=== PATIENT | male | born 1940 | race Caucasian/White ===

== ENCOUNTER 2020-06-15 11:39 | Inpatient (IN) | payer MEDICARE ==
[2020-06-15] MEDS ORDERED: SODIUM CHLORIDE 0.9% 1,000 ML IV STA (11:47)
[2020-06-15] MEDS ORDERED: NALOXONE 0.4 MG/ML 1 ML VIAL IVP STA (11:47)
--- NOTE | 2020-06-15 12:00 | ED ---
Altered Mental Status HPI - General Stated Complaint: Altered Mental Status Time Seen by Provider: 06/15/20 11:39 Source: patient, RN notes reviewed - History of Present Illness Initial Comments: This is a 79-year-old male presents from a long-term with complaints of decreased level of consciousness going on for the past several days and getting worse. Is history depression and hypertension renal insufficiency as well as a recent diagnoses of Covid 19. No reports of fevers chills sweats nausea vomiting. Patient himself is a poor historian. Normally apparently is awake and alert and cognizant. Per paramedics patient's initial blood pressure was 220/120 he did receive IV fluids most recent one was 120/70. MD Complaint: altered mental status, decreased responsiveness - Related Data Home Medications Medication Instructions Recorded Confirmed Allopurinol [Zyloprim] 100 mg PO DAILY 06/15/20 06/15/20 Aspirin EC [Ecotrin Low Dose] 162 mg PO DAILY 06/15/20 06/15/20 Atorvastatin Calcium [Lipitor] 10 mg PO HS 06/15/20 06/15/20 DULoxetine HCL [Cymbalta] 30 mg PO HS 06/15/20 06/15/20 Furosemide [Lasix] 40 mg PO DAILY@0600 06/15/20 06/15/20 Memantine [Namenda] 10 mg PO BID 06/15/20 06/15/20 Methadone [Dolophine] 5 - 10 mg PO Q8H PRN 06/15/20 06/15/20 Metoprolol Succinate (ER) [Toprol 25 mg PO DAILY 06/15/20 06/15/20 Xl] Nitroglycerin Sl Tabs [Nitrostat] 0.4 mg SL Q5M PRN 06/15/20 06/15/20 amLODIPine [Norvasc] 2.5 mg PO DAILY 06/15/20 06/15/20 Allergies Allergy/AdvReac Type Severity Reaction Status Date / Time GAIL Inhibitors Allergy Unknown Verified 06/15/20 12:09 mallampati Allergy Unknown Uncoded 06/15/20 12:09 Review of Systems ROS Statement: Those systems with pertinent positive or pertinent negative responses have been documented in the HPI. ROS Other: All systems not noted in ROS Statement are negative. Limitations: ROS unobtainable due to patients medical condition General Exam - General Exam Comments Initial Comments: This is a well-developed well-nourished obtunded patient who does respond to painful stimuli. General appearance: obtunded Head exam: Present: atraumatic, normocephalic, normal inspection Eye exam: Present: other (Pupils are sluggish he does appear to have a slight leftward gaze with the left eye. Right eye is straight forward) ENT exam: Present: mucous membranes dry Neck exam: Present: normal inspection, other (No stridor JVD or bruits) Respiratory exam: Present: normal lung sounds bilaterally. Absent: respiratory distress, wheezes, rales, rhonchi, stridor Cardiovascular Exam: Present: normal rhythm, tachycardia, normal heart sounds. Absent: systolic murmur, diastolic murmur, rubs, gallop, clicks GI/Abdominal exam: Present: soft, normal bowel sounds. Absent: distended, tenderness, guarding, rebound, rigid Extremities exam: Present: normal inspection, full ROM, normal capillary refill. Absent: tenderness, pedal edema, joint swelling, calf tenderness Back exam: Present: normal inspection Neurological exam: Present: alert, altered, CN II-XII intact Psychiatric exam: Present: other (Unable to assess) Skin exam: Present: warm, dry, intact, normal color. Absent: rash Course Vital Signs 06/15/20 06/15/20 11:42 12:35 Temperature 99.6 F Pulse Rate 106 H Respiratory 20 15 Rate Blood Pressure 167/98 O2 Sat by Pulse 94 L Oximetry Medical Decision Making - Medical Decision Making I did discuss the case with Dr. Funes patient be admitted for treatment of right lower lobe pneumonia and dehydration. Of note the patient Covid test was positive on . In addition to NSTEMI - Lab Data Result diagrams: 06/15/20 12:24 06/15/20 12:24 Lab Results 06/15/20 06/15/20 06/15/20 Range/Units 12:24 12:24 12:24 WBC 5.7 (3.8-10.6) k/uL RBC 3.56 L (4.30-5.90) m/uL Hgb 11.0 L (13.0-17.5) gm/dL Hct 31.6 L (39.0-53.0) % MCV 88.5 (80.0-100.0) fL MCH 30.9 (25.0-35.0) pg MCHC 35.0 (31.0-37.0) g/dL RDW 13.6 (11.5-15.5) % Plt Count 222 (150-450) k/uL MPV 8.4 Neutrophils % 66 % Lymphocytes % 4 % Monocytes % 23 % Eosinophils % 0 % Basophils % 2 % Neutrophils # 3.8 (1.3-7.7) k/uL Lymphocytes # 0.3 L (1.0-4.8) k/uL Monocytes # 1.3 H (0-1.0) k/uL Eosinophils # 0.0 (0-0.7) k/uL Basophils # 0.1 (0-0.2) k/uL PT 10.6 (9.0-12.0) sec INR 1.0 (<1.2) APTT 24.6 (22.0-30.0) sec Sodium 139 (137-145) mmol/L Potassium 3.2 L (3.5-5.1) mmol/L Chloride 106 (98-107) mmol/L Carbon Dioxide 21 L (22-30) mmol/L Anion Gap 12 mmol/L BUN 41 H (9-20) mg/dL Creatinine 1.73 H (0.66-1.25) mg/dL Est GFR (CKD-EPI)AfAm 42 (>60 ml/min/1.73 sqM) Est GFR (CKD-EPI)NonAf 36 (>60 ml/min/1.73 sqM) Glucose 150 H (74-99) mg/dL Calcium 8.9 (8.4-10.2) mg/dL Total Bilirubin 1.2 (0.2-1.3) mg/dL AST 40 (17-59) U/L ALT 20 (4-49) U/L Alkaline Phosphatase 110 (38-126) U/L Ammonia (<30) umol/L Creatine Kinase 93 (55-170) U/L Troponin I (0.000-0.034) ng/mL Total Protein 6.5 (6.3-8.2) g/dL Albumin 3.4 L (3.5-5.0) g/dL Urine Color Urine Appearance (Clear) Urine pH (5.0-8.0) Ur Specific Reeders (1.001-1.035) Urine Protein (Negative) Urine Glucose (UA) (Negative) Urine Ketones (Negative) Urine Blood (Negative) Urine Nitrite (Negative) Urine Bilirubin (Negative) Urine Urobilinogen (<2.0) mg/dL Ur Leukocyte Esterase (Negative) Urine RBC (0-5) /hpf Urine Opiates Screen (NotDetected) Ur Oxycodone Screen (NotDetected) Urine Methadone Screen (NotDetected) Ur Propoxyphene Screen (NotDetected) Ur Barbiturates Screen (NotDetected) U Tricyclic Antidepress (NotDetected) Ur Phencyclidine Scrn (NotDetected) Ur Amphetamines Screen (NotDetected) U Methamphetamines Scrn (NotDetected) U Benzodiazepines Scrn (NotDetected) Urine Cocaine Screen (NotDetected) U Marijuana (THC) Screen (NotDetected) 06/15/20 06/15/20 06/15/20 Range/Units 12:24 12:24 12:40 WBC (3.8-10.6) k/uL RBC (4.30-5.90) m/uL Hgb (13.0-17.5) gm/dL Hct (39.0-53.0) % MCV (80.0-100.0) fL MCH (25.0-35.0) pg MCHC (31.0-37.0) g/dL RDW (11.5-15.5) % Plt Count (150-450) k/uL MPV Neutrophils % % Lymphocytes % % Monocytes % % Eosinophils % % Basophils % % Neutrophils # (1.3-7.7) k/uL Lymphocytes # (1.0-4.8) k/uL Monocytes # (0-1.0) k/uL Eosinophils # (0-0.7) k/uL Basophils # (0-0.2) k/uL PT (9.0-12.0) sec INR (<1.2) APTT (22.0-30.0) sec Sodium (137-145) mmol/L Potassium (3.5-5.1) mmol/L Chloride (98-107) mmol/L Carbon Dioxide (22-30) mmol/L Anion Gap mmol/L BUN (9-20) mg/dL Creatinine (0.66-1.25) mg/dL Est GFR (CKD-EPI)AfAm (>60 ml/min/1.73 sqM) Est GFR (CKD-EPI)NonAf (>60 ml/min/1.73 sqM) Glucose (74-99) mg/dL Calcium (8.4-10.2) mg/dL Total Bilirubin (0.2-1.3) mg/dL AST (17-59) U/L ALT (4-49) U/L Alkaline Phosphatase (38-126) U/L Ammonia <9 (<30) umol/L Creatine Kinase (55-170) U/L Troponin I 0.255 H* (0.000-0.034) ng/mL Total Protein (6.3-8.2) g/dL Albumin (3.5-5.0) g/dL Urine Color Yellow Urine Appearance Clear (Clear) Urine pH 6.0 (5.0-8.0) Ur Specific Reeders 1.011 (1.001-1.035) Urine Protein 1+ H (Negative) Urine Glucose (UA) Negative (Negative) Urine Ketones Negative (Negative) Urine Blood Negative (Negative) Urine Nitrite Negative (Negative) Urine Bilirubin Negative (Negative) Urine Urobilinogen <2.0 (<2.0) mg/dL Ur Leukocyte Esterase Negative (Negative) Urine RBC 1 (0-5) /hpf Urine Opiates Screen Not Detected (NotDetected) Ur Oxycodone Screen Not Detected (NotDetected) Urine Methadone Screen Detected H (NotDetected) Ur Propoxyphene Screen Not Detected (NotDetected) Ur Barbiturates Screen Not Detected (NotDetected) U Tricyclic Antidepress Not Detected (NotDetected) Ur Phencyclidine Scrn Not Detected (NotDetected) Ur Amphetamines Screen Not Detected (NotDetected) U Methamphetamines Scrn Not Detected (NotDetected) U Benzodiazepines Scrn Not Detected (NotDetected) Urine Cocaine Screen Not Detected (NotDetected) U Marijuana (THC) Screen Not Detected (NotDetected) - EKG Data -: EKG Interpreted by Me EKG Comments: Atrial fibrillation rate 129 QRS 80 QT since QTC 332/46 poor R-wave progression - Radiology Data Radiology results: report reviewed ((Reviewed evidence of right lower lobe pneum onia. ), image reviewed Critical Care Time Critical Care Time: Yes Total Critical Care Time: 37 Critical Care Time: Critical care time includes initial presentation with history physical labs x- rays multiple reevaluation the patient review of old charting was available discussed with the admitting physician admission orders and documentation of the above Disposition Clinical Impression: NSTEMI (non-ST elevated myocardial infarction), Chronic a-fib, Right lower lobe pneumonia, Dehydration, Delirium due to general medical condition, COVID-19 Disposition: ADMITTED IP TO THIS HOSP Condition: Fair Referrals: Stan Arias MD [Primary Care Provider] - 1-2 days
[2020-06-15 12:44] LABS: Basophils # (A) 0.1 k/uL (0-0.2); Basophils % (A) 2 %; Eosinophils % (A) 0 %; HCT 31.6 % (39.0-53.0); Lymphocytes # (A) 0.3 k/uL (1.0-4.8); Lymphocytes % (A) 4 %; MCH 30.9 pg (25.0-35.0); MCV 88.5 fL (80.0-100.0); Mean Platelet Volume 8.4; Monocytes # (A) 1.3 k/uL (0-1.0); Monocytes % (A) 23 %; Neutrophils # (A) 3.8 k/uL (1.3-7.7); Neutrophils % (A) 66 %; Platelet Count 222 k/uL (150-450); RBC 3.56 m/uL (4.30-5.90); RDW 13.6 % (11.5-15.5); WBC 5.7 k/uL (3.8-10.6)
[2020-06-15 12:45] LABS: Albumin 3.4 g/dL (3.5-5.0); Calcium 8.9 mg/dL (8.4-10.2); Potassium 3.2 mmol/L (3.5-5.1); Total Bilirubin 1.2 mg/dL (0.2-1.3); Total Protein 6.5 g/dL (6.3-8.2)
[2020-06-15 12:53] LABS: Partial Thromboplastin Time 24.6 sec (22.0-30.0); Prothrombin Time 10.6 sec (9.0-12.0)
--- NOTE | 2020-06-15 12:57 | XR ---
EXAMINATION TYPE: XR chest 2V DATE OF EXAM: 06/15/2020 COMPARISON: None INDICATION: Altered mental status TECHNIQUE: Frontal and lateral views of the chest are obtained. FINDINGS: The heart size is normal. The pulmonary vasculature is normal. A minimal infiltrate as above the right diaphragm. Lungs otherwise clear. IMPRESSION: 1. Mild atelectasis or early pneumonia in the right lung base may be present.
--- NOTE | 2020-06-15 13:04 | CT ---
EXAMINATION TYPE: CT brain wo con DATE OF EXAM: 06/15/2020 COMPARISON: INDICATION: Altered mental status DLP: 1227.4 mGycm, Automated exposure control for dose reduction was used. CONTRAST: None CT of the brain is performed utilizing 3 mm thick sections through the posterior fossa and 3 mm thick sections through the remaining calvarium. Study is performed within 24 hours of arrival to the hosp ital. No abnormal hyperdensity is present to suggest an acute intracranial hemorrhage. No mass lesion is evident. No acute infarcts are evident. Periventricular white matter hypodensity is present, likely on the bas is of chronic white matter ischemic-type changes. Ventricles and sulci are mildly prominent for the patient age. Paranasal sinuses and mastoid air cells within the [id number] are clear. IMPRESSIONS: 1. Age-related atrophy with mild periventricular white matter chronic appearing ischemic changes.
[2020-06-15] MEDS ORDERED: cefTRIAXone IN SWFI 1,000 MG/10 ML SYRINGE IVP STA (13:14)
[2020-06-15 13:49] LABS: Appearance,Urine Clear (Clear); Bilirubin,Urine Negative (Negative); Blood,Urine Negative (Negative); Color,Urine Yellow; Glucose,Urine (UA) Negative (Negative); Ketones,Urine Negative (Negative); Leukocyte Esterase,Urine Negative (Negative); Nitrite,Urine Negative (Negative); Protein,Urine 1+ (Negative); RBC,Urine 1 /hpf (0-5); Specific Gravity,Urine 1.011 (1.001-1.035); Urobilinogen,Urine <2.0 mg/dL (<2.0)
[2020-06-15 14:03] LABS: Amphetamine Screen,Urine Not Detected (NotDetected); Barbiturate Screen,Urine Not Detected (NotDetected); Benzodiazepines Screen,Urine Not Detected (NotDetected); Cocaine Screen,Urine Not Detected (NotDetected); Methadone Screen, Urine Detected (NotDetected); Opiate Screen,Urine Not Detected (NotDetected); Oxycodone Screen, Urine Not Detected (NotDetected); Phencyclidine Screen,Urine Not Detected (NotDetected); Tricyclic Antidepressant,Urine Not Detected (NotDetected); Urn Cannabinoid Scrn Not Detected (NotDetected)
[2020-06-15] MEDS ORDERED: AZITHROMYCIN 500 MG in SODIUM CHLORIDE 0.9% 250 ML IVPB STA (14:24)
[2020-06-15] MEDS ORDERED: PNEUMONIA PROTOCOL UTILIZED 1 EACH MISC PO PRN ×2 (14:24→15:31)
[2020-06-15] MEDS ORDERED: NITROGLYCERIN SL TABS 0.4 MG TAB SUBLINGUAL PRN (14:27)
[2020-06-15] MEDS ORDERED: METHADONE 5 MG TAB PO PRN (14:27)
[2020-06-15] MEDS ORDERED: hydrALAZINE HCL 20 MG/ML 1 ML VIAL IVP STA (14:59)
[2020-06-15] MEDS ORDERED: DILTIAZEM DRIP BOLUS FROM BAG 1 MG SOLN IV ONE (15:20)
[2020-06-15] MEDS: DILTIAZEM 125 MG in SODIUM CHLORIDE 0.9% 100 ML IV SCH (17:04)
[2020-06-15] MEDS ORDERED: POTASSIUM CHLORIDE ER 20 MEQ TAB.ER PO STA (21:47)
[2020-06-15] MEDS ORDERED: cloNIDine 0.1 MG/24HR PATCH TRANSDERM SCH (22:00)
[2020-06-15] MEDS ORDERED: Potassium Replacement Protocol 1 EACH MISC MISCELLANE PRN (22:12)
[2020-06-15] MEDS: MEMANTINE 10 MG TAB PO SCH (22:21)
[2020-06-15] MEDS: DULoxetine HCL 30 MG CAPSULE.DR PO SCH (22:21)
[2020-06-15] MEDS: ATORVASTATIN 10 MG TAB PO SCH (22:21)
[2020-06-15] MEDS: LACTATED RINGERS 1,000 ML IV SCH (22:41)
[2020-06-15] MEDS: POTASSIUM CHLORIDE 10 MEQ in WATER FOR INJECTION 1 100ML.BAG IVPB SCH ×2 (22:42→23:47)
[2020-06-16] MEDS ORDERED: FUROSEMIDE 40 MG TAB PO SCH (06:00)
[2020-06-16 07:37] LABS: Potassium 3.3 mmol/L (3.5-5.1)
--- NOTE | 2020-06-16 08:03 | XR ---
EXAMINATION TYPE: XR chest 1V DATE OF EXAM: 06/16/2020 HISTORY: Shortness of breath. COMPARISON: 06/15/2020 TECHNIQUE: Single view of the chest is submitted. FINDINGS: Demonstrated are scattered senescent parenchymal change. Patchy basilar infiltrates persist without significant change. Correlate for pneumonia. The heart is stable. Hilar and mediastinal structures are within normal limits. Degenerative changes are seen of the dorsal spine. IMPRESSION: 1. Patchy basilar infiltrates persist without significant change. Correlate for pneumonia.
[2020-06-16] MEDS ORDERED: ASPIRIN 81 MG PO SCH (09:00)
[2020-06-16] MEDS ORDERED: Potassium Replacement Protocol 1 EACH MISC MISCELLANE PRN (10:16)
[2020-06-16] MEDS ORDERED: HEPARIN SODIUM,PORCINE 5,000 UNIT/ML 1 ML VIAL IV ONE (10:26)
[2020-06-16] MEDS ORDERED: HEPARIN SODIUM,PORCINE 5,000 UNIT/ML 1 ML VIAL IV PRN (10:26)
[2020-06-16] MEDS: allopurinoL 100 MG TAB PO SCH (10:27)
[2020-06-16] MEDS: AZITHROMYCIN 500 MG TAB PO SCH (10:27)
[2020-06-16] MEDS: amLODIPine 2.5 MG TAB PO SCH (10:27)
[2020-06-16] MEDS: LACTATED RINGERS 1,000 ML IV SCH ×2 (10:27→18:48)
[2020-06-16] MEDS: MEMANTINE 10 MG TAB PO SCH ×2 (10:28→20:28)
[2020-06-16] MEDS: METOPROLOL SUCCINATE (ER) 25 MG TAB.ER.24H PO SCH (10:28)
[2020-06-16] MEDS: POTASSIUM CHLORIDE 10 MEQ in WATER FOR INJECTION 1 100ML.BAG IVPB SCH ×4 (10:38→14:15)
[2020-06-16 11:19] LABS: Partial Thromboplastin Time 25.2 sec (22.0-30.0); Prothrombin Time 10.4 sec (9.0-12.0)
[2020-06-16] MEDS: HEPARIN SOD,PORK IN 0.45% NACL 25,000 UNIT in 0.45% NACL 1 250ML.BAG IV SCH (11:22)
[2020-06-16 11:30] LABS: Basophils # (A) 0.2 k/uL (0-0.2); Basophils % (A) 3 %; Eosinophils % (A) 0 %; HCT 41.4 % (39.0-53.0); HGB 13.9 gm/dL (13.0-17.5); Lymphocytes # (A) 0.1 k/uL (1.0-4.8); Lymphocytes % (A) 1 %; MCH 30.1 pg (25.0-35.0); MCHC 33.6 g/dL (31.0-37.0); MCV 89.4 fL (80.0-100.0); Mean Platelet Volume 8.6; Monocytes # (A) 0.7 k/uL (0-1.0); Monocytes % (A) 13 %; Neutrophils # (A) 4.6 k/uL (1.3-7.7); Neutrophils % (A) 81 %; Platelet Count 204 k/uL (150-450); RBC 4.63 m/uL (4.30-5.90); RDW 13.8 % (11.5-15.5); WBC 5.7 k/uL (3.8-10.6)
[2020-06-16] MEDS: ACETAMINOPHEN SUPPOSITORY 650 MG SUPP RECTAL PRN ×2 (11:54→17:44)
[2020-06-16] MEDS: DILTIAZEM 125 MG in SODIUM CHLORIDE 0.9% 100 ML IV SCH (11:56)
--- NOTE | 2020-06-16 14:19 | P.CRDCN ---
History of Present Illness History of present illness: HISTORY OF PRESENTING ILLNESS This is a pleasant 79-year-old male past medical history significant for hypertension, dyslipidemia, frequent PVC's and recent COVID infection. He used to follow in the office with Dr. Sharpe. He has not followed since 2017. He is currently here being treated for COVID. We discussed the case with the nurse to prevent spread of infection. He presented to the hospital with altered mental status and decreased level of consciousness that is getting worse over the previous several days. He had been diagnosed with Covid recently. On arrival he was noted to be in atrial fibrillation with rapid ventricular rate. He was initiated on Cardizem infusion. Currently heart rates are in the 140s with blood pressure 25/86 and a temperature of 102.5F. Telemetry data reviewed, WBC 5.7, hemoglobin 13.9, platelets 204, d-dimer 2.23, sodium 144, potassium 3.3, creatinine 1.67, troponin 0.255. Most recent echocardiogram obtained in the office in 2016 reveals preserved LV systolic function with ejection fraction 65% with grade 1 diastolic dysfunction. REVIEW OF SYSTEMS At the time of my exam: Pt is not responding or answering questions appropriately. PHYSICAL EXAMINATION CONSTITUTIONAL: No apparent distress. Full exam was deferred to do COVID 19 ASSESSMENT Covid 19 Paroxysmal atrial fibrillation, new onset with RVR Troponin leak secondary to infection Febrile illness Hypertension Dyslipidemia PLAN Continue cardizem infusion and titrate up for heart rate. Given one dose of lopressor IVP 5 mg now. Recommend conservative management given his current diagnosis of COVID 19 Thank you kindly for this consultation. Nurse Practitioner note has been reviewed, I agree with a documented findings and plan of care. Patient was seen and examined. Past Medical History Past Medical History: Atrial Fibrillation, Heart Failure, Hyperlipidemia, Hypertension, Myocardial Infarction ([place]) Last Myocardial Infarction Date:: unknown History of Any Multi-Drug Resistant Organisms: None Reported Past Surgical History: Unable to Obtain Additional Past Surgical History / Comment(s): Back surgery (uses walker at home) Past Anesthesia/Blood Transfusion Reactions: No Reported Reaction Past Psychological History: No Psychological Hx Reported Smoking Status: Former smoker, Unknown if ever smoked Past Alcohol Use History: Unable to Obtain Past Drug Use History: Unable to Obtain Medications and Allergies Home Medications Medication Instructions Recorded Confirmed Type Allopurinol [Zyloprim] 100 mg PO DAILY 06/15/20 06/15/20 History Aspirin EC [Ecotrin Low Dose] 162 mg PO DAILY 06/15/20 06/15/20 History Atorvastatin Calcium [Lipitor] 10 mg PO HS 06/15/20 06/15/20 History DULoxetine HCL [Cymbalta] 30 mg PO HS 06/15/20 06/15/20 History Furosemide [Lasix] 40 mg PO DAILY@0600 06/15/20 06/15/20 History Memantine [Namenda] 10 mg PO BID 06/15/20 06/15/20 History Methadone [Dolophine] 5 - 10 mg PO Q8H PRN 06/15/20 06/15/20 History Metoprolol Succinate (ER) [Toprol 25 mg PO DAILY 06/15/20 06/15/20 History Xl] Nitroglycerin Sl Tabs [Nitrostat] 0.4 mg SL Q5M PRN 06/15/20 06/15/20 History amLODIPine [Norvasc] 2.5 mg PO DAILY 06/15/20 06/15/20 History Allergies Allergy/AdvReac Type Severity Reaction Status Date / Time GAIL Inhibitors Allergy Unknown Verified 06/15/20 12:09 mallampati Allergy Unknown Uncoded 06/15/20 12:09 Physical Exam Vitals: Vital Signs Temp Pulse Pulse Resp BP BP BP 06/16/20 12:08 185/86 06/16/20 11:29 102.5 F H 130 H 32 H 180/99 06/16/20 08:00 99.7 F H 130 H 16 06/16/20 04:00 97.4 F L 126 H 20 141/92 06/16/20 00:00 99.0 F 104 H 18 136/76 06/15/20 22:00 97.9 F 115 H 20 198/87 206/88 06/15/20 20:33 99.0 F 116 H 20 158/83 06/15/20 17:00 115 H 20 166/90 06/15/20 16:00 128 H 20 155/104 06/15/20 15:15 99.2 F 134 H 22 162/89 Pulse Ox 06/16/20 12:08 06/16/20 11:29 95 06/16/20 08:00 96 06/16/20 04:00 97 06/16/20 00:00 93 L 06/15/20 22:00 96 06/15/20 20:33 95 06/15/20 17:00 95 06/15/20 16:00 93 L 06/15/20 15:15 97 Intake and Output 06/15/20 06/16/20 06/16/20 22:59 06:59 14:59 Intake Total 94.333 Balance 94.333 Intake: Intake, IV Titration 94.333 Amount Diltiazem 125 mg In 94.333 Sodium Chloride 0.9% 100 ml @ 5 MG/HR 5 mls/hr IV .Q24H [facility] Rx#:[id number] Oral 0 Other: Voiding Method Incontinent # Voids 0 1 Weight 98 kg 98 kg Results 06/16/20 10:42 06/16/20 06:50 Cardiac Enzymes 06/15/20 Range/Units 12:24 Troponin I 0.255 H* (0.000-0.034) ng/mL Coagulation 06/16/20 Range/Units 10:42 PT 10.4 (9.0-12.0) sec APTT 25.2 (22.0-30.0) sec CBC 06/16/20 Range/Units 10:42 WBC 5.7 (3.8-10.6) k/uL RBC 4.63 (4.30-5.90) m/uL Hgb 13.9 (13.0-17.5) gm/dL Hct 41.4 (39.0-53.0) % Plt Count 204 (150-450) k/uL Comprehensive Metabolic Panel 06/16/20 Range/Units 06:50 Sodium 144 (137-145) mmol/L Potassium 3.3 L (3.5-5.1) mmol/L Chloride 111 H (98-107) mmol/L Carbon Dioxide 22 (22-30) mmol/L BUN 37 H (9-20) mg/dL Creatinine 1.67 H (0.66-1.25) mg/dL Glucose 127 H (74-99) mg/dL Calcium 9.0 (8.4-10.2) mg/dL Current Medications Generic Name Dose Route Start Last Admin Trade Name Freq PRN Reason Stop Dose Admin Acetaminophen 650 mg 06/16/20 11:35 06/16/20 11:54 Acetaminophen Suppository 650 Mg Supp RECTAL 650 mg Q6HR PRN Administration Fever and/ or Pain Allopurinol 100 mg 06/16/20 09:00 06/16/20 10:27 Allopurinol 100 Mg Tab PO Not Given DAILY [facility] Amlodipine Besylate 2.5 mg 06/16/20 09:00 06/16/20 10:27 Amlodipine 2.5 Mg Tab PO Not Given DAILY [facility] Aspirin 162 mg 06/16/20 09:00 06/16/20 10:27 Aspirin 81 Mg PO Not Given DAILY [facility] Atorvastatin Calcium 10 mg 06/15/20 21:00 06/15/20 22:21 Atorvastatin 10 Mg Tab PO Not Given HS [facility] Azithromycin 500 mg 06/16/20 09:00 06/16/20 10:27 Azithromycin 500 Mg Tab PO 06/20/20 09:01 Not Given DAILY [facility] Clonidine HCl 1 patch 06/15/20 22:00 06/15/20 22:43 Clonidine 0.1 Mg/24hr Patch TRANSDERM 1 patch Q7D [facility] Administration Duloxetine HCl 30 mg 06/15/20 21:00 06/15/20 22:21 Duloxetine Hcl 30 Mg Capsule.Dr PO Not Given HS [facility] Furosemide 40 mg 06/16/20 06:00 06/16/20 07:47 Furosemide 40 Mg Tab PO Not Given DAILY@0600 [facility] Heparin Sodium (Porcine) 0 unit 06/16/20 10:26 Heparin Sodium,Porcine 5,000 Unit/Ml 1 Ml Vial IV PER PROTOCOL PRN Low PTT Protocol Ceftriaxone Sodium 2 gm/ 50 mls @ 100 mls/hr 06/16/20 09:00 06/16/20 08:25 Sodium Chloride IVPB 06/18/20 09:01 100 mls/hr Q24HR [facility] Administration Diltiazem HCl 125 mg/ Sodium 125 mls @ 10 mls/hr 06/15/20 15:30 06/16/20 11:56 Chloride IV 10 mg/hr .[id number] [facility] 10 mls/hr Administration 10 MG/HR Lactated Ringer's 1,000 mls @ 100 mls/hr 06/15/20 22:30 06/16/20 10:27 Lactated Ringers IV Not Given .Q10H [facility] Potassium Chloride 10 meq/ IV 100 mls @ 100 mls/hr 06/16/20 11:00 06/16/20 12:55 Solution IVPB 06/16/20 14:59 100 mls/hr Q1HR [facility] Administration Protocol Heparin Sodium/Sodium Chloride 250 mls @ 9.996 mls/hr 06/16/20 10:30 06/16/20 11:22 25,000 unit/ Sodium Chloride IV 10.2 units/kg/hr .Q24H [facility] 9.996 mls/hr Administration Protocol 10.2 UNITS/KG/HR Memantine 10 mg 06/15/20 21:00 06/16/20 10:28 Memantine 10 Mg Tab PO Not Given BID [facility] Methadone HCl 5 mg 06/15/20 14:27 Methadone 5 Mg Tab PO Q8H PRN Pain Metoprolol Succinate 25 mg 06/16/20 09:00 06/16/20 10:28 Metoprolol Succinate (Er) 25 Mg Tab.Er.24h PO Not Given DAILY [facility] Miscellaneous Information 1 each 06/15/20 15:31 Pneumonia Protocol Utilized 1 Each Misc PO ONCE PRN Per Protocol Miscellaneous Information 1 each 06/16/20 10:16 Potassium Replacement Protocol 1 Each Misc MISCELLANE DAILY PRN Per Protocol Protocol Nitroglycerin 0.4 mg 06/15/20 14:27 Nitroglycerin Sl Tabs 0.4 Mg Tab SUBLINGUAL Q5M PRN Chest Pain Intake and Output 06/15/20 06/16/20 06/16/20 22:59 06:59 14:59 Intake Total 94.333 Balance 94.333 Intake: Intake, IV Titration 94.333 Amount Diltiazem 125 mg In 94.333 Sodium Chloride 0.9% 100 ml @ 5 MG/HR 5 mls/hr IV .Q24H [facility] Rx#:[id number] Oral 0 Other: Voiding Method Incontinent # Voids 0 1 Weight 98 kg 98 kg 06/16/20 10:42 06/16/20 06:50
[2020-06-16] MEDS: METOPROLOL TARTRATE 5 MG/5 ML VIAL IVP PRN (14:35)
--- NOTE | 2020-06-16 16:59 | P.CNNES ---
History of Present Illness Consult date: 06/16/20 Requesting physician: Alfonso Funes Reason for Consult: Altered mental status History of Present Illness: Patient is a 79-year-old male came to the hospital yesterday at 11:39 AM by ambulance from a residential with complaints of decreased level of consciousness going for past several days, getting worse. Patient has history of depression and hypertension, renal insufficiency as well as recent diagnosis of Covid 19. No reports of fevers chills, sweats nausea vomiting. Per EMS flow sheet, staff has mentioned that patient has declined from being oriented, walking around, conversing to an unresponsive state. Patient has stopped eating, drinking over the last 2 days prior to arrival. On the morning of admission, the vitals checked at the residential was 220/120 and he was given metoprolol and amlodipine. Patient is Covid positive. When EMS arrived, patient was unresponsive, open mouth breathing, tongue dry and crusty. No signs of trauma. Patient noted to have possible droop in the corner of the mouth. EKG shows atrial fibrillation with rapid ventricle rate. Patient's blood pressure was 136/65 per EMS, pulse 115, saturation 94%, respiration 28 Vital signs on arrival blood pressure 167/98, pulse rate 106, temperature 99.6. Patient's blood pressure went up to 209/94. T-max is 99.[address] head showed age-related atrophy with mild periventricular white matter chronic appearing ischemic changes. Chest x-ray showed mild atelectasis or early pneumonia in the right lung base. EKG shows atrial fibrillation with rapid ventricular rate. Repeat chest x-ray showed patchy basilar infiltrates persist without significant change. Correlate for pneumonia. Patient's blood test shows normal WBC hemoglobin 11.0, platelets are 222. PT/PTT is normal. Sodium is normal potassium 3.2, BUN 41, creatinine 1.73, which is improved to 37 and 1.67 respectively. Hepatic panel normal, troponin is mildly elevated 0.255. UA negative, urine drug screen positive for methadone. Patient takes Namenda 10 mg twice a day, Lasix 40 mg, Cymbalta 30 mg at bedtime, aspirin 162 mg, methadone Lipitor 10 mg amlodipine. Patient has been started on heparin drip for atrial fibrillation. Review of Systems ROS unobtainable: due to mental status Past Medical History Past Medical History: Atrial Fibrillation, Heart Failure, Hyperlipidemia, Hypertension, Myocardial Infarction ([place]) Last Myocardial Infarction Date:: unknown History of Any Multi-Drug Resistant Organisms: None Reported Past Surgical History: Unable to Obtain Additional Past Surgical History / Comment(s): Back surgery (uses walker at home) Past Anesthesia/Blood Transfusion Reactions: No Reported Reaction Past Psychological History: No Psychological Hx Reported Smoking Status: Former smoker, Unknown if ever smoked Past Alcohol Use History: Unable to Obtain Past Drug Use History: Unable to Obtain Medications and Allergies Home Medications Medication Instructions Recorded Confirmed Type Allopurinol [Zyloprim] 100 mg PO DAILY 06/15/20 06/15/20 History Aspirin EC [Ecotrin Low Dose] 162 mg PO DAILY 06/15/20 06/15/20 History Atorvastatin Calcium [Lipitor] 10 mg PO HS 06/15/20 06/15/20 History DULoxetine HCL [Cymbalta] 30 mg PO HS 06/15/20 06/15/20 History Furosemide [Lasix] 40 mg PO DAILY@0600 06/15/20 06/15/20 History Memantine [Namenda] 10 mg PO BID 06/15/20 06/15/20 History Methadone [Dolophine] 5 - 10 mg PO Q8H PRN 06/15/20 06/15/20 History Metoprolol Succinate (ER) [Toprol 25 mg PO DAILY 06/15/20 06/15/20 History Xl] Nitroglycerin Sl Tabs [Nitrostat] 0.4 mg SL Q5M PRN 06/15/20 06/15/20 History amLODIPine [Norvasc] 2.5 mg PO DAILY 06/15/20 06/15/20 History Allergies Allergy/AdvReac Type Severity Reaction Status Date / Time GAIL Inhibitors Allergy Unknown Verified 06/15/20 12:09 mallampati Allergy Unknown Uncoded 06/15/20 12:09 Physical Examination - Vital Signs Vital Signs: Vital Signs Temp Pulse Pulse Resp BP BP BP 06/16/20 08:00 99.7 F H 130 H 16 06/16/20 04:00 97.4 F L 126 H 20 141/92 06/16/20 00:00 99.0 F 104 H 18 136/76 06/15/20 22:00 97.9 F 115 H 20 198/87 206/88 06/15/20 20:33 99.0 F 116 H 20 158/83 06/15/20 17:00 115 H 20 166/90 06/15/20 16:00 128 H 20 155/104 06/15/20 15:15 99.2 F 134 H 22 162/89 06/15/20 12:35 15 06/15/20 11:42 99.6 F 106 H 20 167/98 Pulse Ox 06/16/20 08:00 96 06/16/20 04:00 97 06/16/20 00:00 93 L 06/15/20 22:00 96 06/15/20 20:33 95 06/15/20 17:00 95 06/15/20 16:00 93 L 06/15/20 15:15 97 06/15/20 12:35 06/15/20 11:42 94 L Intake and Output 06/15/20 06/16/20 06/16/20 22:59 06:59 14:59 Other: Voiding Method Incontinent # Voids 0 1 Weight 98 kg 98 kg On examination patient is an elderly male, who is obtunded, encephalopathic, snoring, opening eyes minimally to calling his name loudly. Speech and language functions cannot be checked. Patient is not following commands. His pupils are round and reacting to light, visual marion could not be tested. Gaze is in the midline. Oculocephalics are absent. Face appears symmetric. Patient's muscle strength cannot be checked, however when the arms are lifted up, he slowly brings them down equally, with no asymmetry. Patient slightly moves his hands and legs equally to noxious stimuli. He did moan slightly. Reflexes are diminished and plantars are flat. Patient's feet are somewhat plantarflexed. Uncertain if he has any focal weakness. Tone and bulk of muscles normal. Gait cannot be checked. Cerebellar functions could not be checked. Tone is equal bilaterally. No obvious seizure activity noted. No obvious bruit, S1-S2 audible. Abdomen soft. Results - Laboratory Findings CBC and BMP: 06/16/20 10:42 06/16/20 06:50 Abnormal Lab Findings: Abnormal Labs 06/15/20 06/15/20 06/15/20 12:24 12:24 12:24 RBC 3.56 L Hgb 11.0 L Hct 31.6 L Lymphocytes # 0.3 L Monocytes # 1.3 H Potassium 3.2 L Chloride Carbon Dioxide 21 L BUN 41 H Creatinine 1.73 H Glucose 150 H Troponin I 0.255 H* Albumin 3.4 L Urine Protein Urine Methadone Screen 06/15/20 06/16/20 12:40 06:50 RBC Hgb Hct Lymphocytes # Monocytes # Potassium 3.3 L Chloride 111 H Carbon Dioxide BUN 37 H Creatinine 1.67 H Glucose 127 H Troponin I Albumin Urine Protein 1+ H Urine Methadone Screen Detected H Assessment and Plan Assessment: * Altered mental status, likely due to toxic metabolic encephalopathy. Patient has acute Covid 19 pneumonia. * Atrial fibrillation with rapid ventricular rate. Limited examination is nonfocal. * Elevated cardiac enzymes, possible troponin leak per cardiology. * Hypertension * Dyslipidemia. Plan: * We will check EEG to evaluate for encephalopathy, rule out any seizure activity. * Carotid Doppler * Patient has been started on heparin for atrial fibrillation. Limited examination is nonfocal. * We will follow.
--- NOTE | 2020-06-16 20:14 | US ---
EXAMINATION TYPE: US carotid duplex BILAT DATE OF EXAM: 06/16/2020 COMPARISON: CT, MR CLINICAL HISTORY: AMS. Altered mental status. Patient unable to give history. EXAM MEASUREMENTS: RIGHT: Peak Systolic Velocity (PSV) cm/sec ----- Right CCA: 51.1 ----- Right ICA: 164.2 ----- Right ECA: 94.9 ICA/CCA ratio: 3.2 RIGHT: End Diastole cm/sec ----- Right CCA: 7.5 ----- Right ICA: 26.2 ----- Right ECA: 1.7 LEFT: Peak Systolic Velocity (PSV) cm/sec ----- Left CCA: 61.9 ----- Left ICA: 136.2 ----- Left ECA: 188.9 ICA/CCA ratio: 2.2 LEFT: End Diastole cm/sec ----- Left CCA: 9.1 ----- Left ICA: 18.3 ----- Left ECA: 0.0 VERTEBRALS (direction of flow): Right Vertebral: Antegrade Left Vertebral: Not visualized at this time. Rhythm: Arrhythmia Exam is slightly limited due to altered mental status, and patient did not turn neck into proper posi tion. Intimal thickening seen bilaterally. Plaque seen in bilateral bulbs. IMPRESSION: Limited evaluation. Elevated velocities in the right greater than left ICAs, consistent with 50-69% stenosis. Also mildly to moderately elevated left ECA velocity. Criteria for Assigning % of Stenosis / Diameter reduction (Estimation based on the indirect measurements of the internal carotid artery velocities (ICA PSV). 1. Normal (no stenosis)=ICA PSV < 125 cm/s: ratio < 2.0: ICA EDV<40 cm/s. 2. Less than 50% stenosis=ICA PSV < 125 cm/s: ratio < 2.0: ICA EDV<40 cm/s. 3. 50 to 69% stenosis=ICA PSV of 125 to 230 cm/s: ration 2.0 ? 4.0: ICA EDV 40-100 cm/s. 4. Greater than 70% stenosis to near occlusion= ICA PSV > 230 cm/s: ratio > 4.0: ICA EDV > 100 cm/s. 5. Near occlusion= ICA PSV velocities may be low or undetectable: variable ratio and ICA EDV. 6. Total occlusion=unable to detect flow.
[2020-06-16] MEDS: ATORVASTATIN 10 MG TAB PO SCH (20:28)
[2020-06-16] MEDS: DULoxetine HCL 30 MG CAPSULE.DR PO SCH (20:28)
--- NOTE | 2020-06-16 20:43 | P.HPIM ---
History of Present Illness H&P Date: 06/16/20 Chief Complaint: Decreased consciousness History of presenting complaint: This is a 79-year-old patientNaq who follows with at the [facility]. Chronic stable medical conditions include kidney stones GERD, mitral regurgitation, peripheral neuropathy, spinal stenosis, hard of hearing, vitamin D deficiency, coronary artery disease, hyperlipidemia, major depression, tricuspid regurgitation, atrial fibrillation, osteoarthritis. Delivery week ago patient had been apparently getting about was able to converse. Staff indicated of the EMS personnel that the patient had declined from being oriented walking around conversing when unresponsive state. On the last 2 days oral intake had practically ceased. Patient's blood pressure the morning was 200/120. He did receive metoprolol and amlodipine. Telemetry didn't show atrial fibrillation. Patient is lethargic. Opens his eyes. Not really able to give any history. Patient also positive for COVID 19 apparently on May 31or . Review of systems cannot be done as patient other lethargic Past medical history to include: Kidney stones, GERD, mitral regurgitation, peripheral neuropathy, spinal stenosis, hard of hearing, vitamin D deficiency, coronary artery disease, hyperlipidemia, major depression, tricuspid regurgitation, atrial fibrillation, osteoarthritis Past surgical history to include: Back surgery Social history: At the [facility]. Former smoker. Family history: Unable to obtain Physical examination: VITAL SIGNS: 99.2, 1:30, 22, 1 62 x 89, 97% GENERAL: BMI 29.3, laying in bed, lethargic but arousable. EYES: Pupils equal. Conjunctiva palel. HEENT: External appearance of nose and ears normal, oral cavity dry mucous membranes. NECK: JVD not raised; masses not palpable. HEART: First and second heart sounds are normal; no edema. LUNGS:[ Respiratory rate normal; decreased breath sounds. ABDOMEN: Soft, nontender, liver spleen not palpable, no masses palpable. PSYCH: [Lethargic. NEUROLOGICAL: [Cranial nerves grossly intact; no facial asymmetry, moving his limbs LYMPHATICS: No lymph nodes palpable in the axilla and neck INVESTIGATIONS, reviewed in the clinical context: WBC 5.7 hemoglobin 13.9 platelets 204 Potassium 3.2 bun 41 and creatinine 1.73 Troponin I 0.255 CRP 134 UA positive for protein 1+ Urine drug screen positive for methadone EKG tracing personally reviewed by me-atrial fibrillation with a rate of 129 Chest x-ray film personally reviewed by me-right basilar infiltrate Computed tomography scan of the brain: Aged related atrophy D-dimer 2.23, CRP 134 Assessment and plan: -This is a patient presents in the last 2 days has been progressively declining with decrease sensorium and poor oral intake. Differential includes encephalopathy from underlying pneumonia. Resulting in severe dehydration. Also stroke needs to be ruled out -Right lower lobe pneumonia. Suspect gram-negative organism. Patient is on IV ceftriaxone. -Persistent atrial fibrillation. Need to consider embolic stroke in the differential. Patient placed on IV heparin. Likely cause of the patient not being anticoagulated before was likely risk of falls -Chronic congestive heart failure EF not known -Essential hypertension, on Norvasc Toprol-XL -Hyperlipidemia, on Lipitor -Cognitive impairment patient on Namenda -Coronary artery disease with prior history of [place] -COVID 19 pneumonitis. Patient's pulse ox is stable. No obvious indication for steroids. -Acute kidney injury likely prerenal. Rule out chronic component. DC Lasix. IV fluids. Follow labs -DO NOT RESUSCITATE Consultation to neurology and cardiology Given the complexity and severity of patient's condition expect the patient to be in the hospital at least for 2 overnights Past Medical History Past Medical History: Atrial Fibrillation, Heart Failure, Hyperlipidemia, Hyper tension, Myocardial Infarction ([place]) Last Myocardial Infarction Date:: unknown History of Any Multi-Drug Resistant Organisms: None Reported Past Surgical History: Unable to Obtain Additional Past Surgical History / Comment(s): Back surgery (uses walker at home) Past Anesthesia/Blood Transfusion Reactions: No Reported Reaction Past Psychological History: No Psychological Hx Reported Smoking Status: Former smoker, Unknown if ever smoked Past Alcohol Use History: Unable to Obtain Past Drug Use History: Unable to Obtain Medications and Allergies Home Medications Medication Instructions Recorded Confirmed Type Allopurinol [Zyloprim] 100 mg PO DAILY 06/15/20 06/15/20 History Aspirin EC [Ecotrin Low Dose] 162 mg PO DAILY 06/15/20 06/15/20 History Atorvastatin Calcium [Lipitor] 10 mg PO HS 06/15/20 06/15/20 History DULoxetine HCL [Cymbalta] 30 mg PO HS 06/15/20 06/15/20 History Furosemide [Lasix] 40 mg PO DAILY@0600 06/15/20 06/15/20 History Memantine [Namenda] 10 mg PO BID 06/15/20 06/15/20 History Methadone [Dolophine] 5 - 10 mg PO Q8H PRN 06/15/20 06/15/20 History Metoprolol Succinate (ER) [Toprol 25 mg PO DAILY 06/15/20 06/15/20 History Xl] Nitroglycerin Sl Tabs [Nitrostat] 0.4 mg SL Q5M PRN 06/15/20 06/15/20 History amLODIPine [Norvasc] 2.5 mg PO DAILY 06/15/20 06/15/20 History Allergies Allergy/AdvReac Type Severity Reaction Status Date / Time GAIL Inhibitors Allergy Unknown Verified 06/15/20 12:09 mallampati Allergy Unknown Uncoded 06/15/20 12:09 Physical Exam Vitals: Vital Signs Temp Pulse Pulse Resp BP BP BP 06/16/20 08:00 99.7 F H 130 H 16 06/16/20 04:00 97.4 F L 126 H 20 141/92 06/16/20 00:00 99.0 F 104 H 18 136/76 06/15/20 22:00 97.9 F 115 H 20 198/87 206/88 06/15/20 20:33 99.0 F 116 H 20 158/83 06/15/20 17:00 115 H 20 166/90 06/15/20 16:00 128 H 20 155/104 06/15/20 15:15 99.2 F 134 H 22 162/89 06/15/20 12:35 15 06/15/20 11:42 99.6 F 106 H 20 167/98 Pulse Ox 06/16/20 08:00 96 06/16/20 04:00 97 06/16/20 00:00 93 L 06/15/20 22:00 96 06/15/20 20:33 95 06/15/20 17:00 95 06/15/20 16:00 93 L 06/15/20 15:15 97 06/15/20 12:35 06/15/20 11:42 94 L Intake and Output 06/15/20 06/16/20 06/16/20 22:59 06:59 14:59 Other: Voiding Method Incontinent # Voids 0 1 Weight 98 kg 98 kg Results CBC & Chem 7: 06/16/20 10:42 06/16/20 06:50 Labs: Abnormal Lab Results - Last 24 Hours (Table) 06/15/20 06/15/20 06/15/20 Range/Units 12:24 12:24 12:24 RBC 3.56 L (4.30-5.90) m/uL Hgb 11.0 L (13.0-17.5) gm/dL Hct 31.6 L (39.0-53.0) % Lymphocytes # 0.3 L (1.0-4.8) k/uL Monocytes # 1.3 H (0-1.0) k/uL Potassium 3.2 L (3.5-5.1) mmol/L Chloride (98-107) mmol/L Carbon Dioxide 21 L (22-30) mmol/L BUN 41 H (9-20) mg/dL Creatinine 1.73 H (0.66-1.25) mg/dL Glucose 150 H (74-99) mg/dL Troponin I 0.255 H* (0.000-0.034) ng/mL Albumin 3.4 L (3.5-5.0) g/dL Urine Protein (Negative) Urine Methadone Screen (NotDetected) 06/15/20 06/16/20 Range/Units 12:40 06:50 RBC (4.30-5.90) m/uL Hgb (13.0-17.5) gm/dL Hct (39.0-53.0) % Lymphocytes # (1.0-4.8) k/uL Monocytes # (0-1.0) k/uL Potassium 3.3 L (3.5-5.1) mmol/L Chloride 111 H (98-107) mmol/L Carbon Dioxide (22-30) mmol/L BUN 37 H (9-20) mg/dL Creatinine 1.67 H (0.66-1.25) mg/dL Glucose 127 H (74-99) mg/dL Troponin I (0.000-0.034) ng/mL Albumin (3.5-5.0) g/dL Urine Protein 1+ H (Negative) Urine Methadone Screen Detected H (NotDetected) Thrombosis Risk Factor Assmnt - Choose All That Apply Any of the Below Risk Factors Present?: No Other Risk Factors: No Other congenital or acquired thrombophilia - If yes, enter type in comment: No Thrombosis Risk Factor Assessment Level: Very Low Risk
[2020-06-17] MEDS: ACETAMINOPHEN SUPPOSITORY 650 MG SUPP RECTAL PRN ×3 (00:28→14:47)
[2020-06-17] MEDS: METOPROLOL TARTRATE 5 MG/5 ML VIAL IVP PRN ×3 (00:33→17:06)
[2020-06-17] MEDS: DILTIAZEM 125 MG in SODIUM CHLORIDE 0.9% 100 ML IV SCH ×2 (00:44→13:54)
[2020-06-17] MEDS: HEPARIN SOD,PORK IN 0.45% NACL 25,000 UNIT in 0.45% NACL 1 250ML.BAG IV SCH (05:41)
[2020-06-17] MEDS: LACTATED RINGERS 1,000 ML IV SCH (06:09)
[2020-06-17 06:37] LABS: Basophils # (A) 0.1 k/uL (0-0.2); Basophils % (A) 2 %; Eosinophils % (A) 0 %; HCT 39.6 % (39.0-53.0); HGB 13.2 gm/dL (13.0-17.5); Lymphocytes # (A) 0.1 k/uL (1.0-4.8); Lymphocytes % (A) 1 %; MCH 30.9 pg (25.0-35.0); MCHC 33.3 g/dL (31.0-37.0); MCV 92.8 fL (80.0-100.0); Mean Platelet Volume 8.9; Monocytes # (A) 0.6 k/uL (0-1.0); Monocytes % (A) 11 %; Neutrophils # (A) 4.2 k/uL (1.3-7.7); Neutrophils % (A) 82 %; Platelet Count 175 k/uL (150-450); RBC 4.27 m/uL (4.30-5.90); RDW 14.3 % (11.5-15.5); WBC 5.2 k/uL (3.8-10.6)
[2020-06-17 06:45] LABS: Calcium 8.9 mg/dL (8.4-10.2); Potassium 3.8 mmol/L (3.5-5.1)
[2020-06-17] MEDS: allopurinoL 100 MG TAB PO SCH (08:56)
[2020-06-17] MEDS: AZITHROMYCIN 500 MG TAB PO SCH (08:57)
[2020-06-17] MEDS: MEMANTINE 10 MG TAB PO SCH ×2 (08:57→20:53)
[2020-06-17] MEDS: ASPIRIN 81 MG PO SCH (08:57)
[2020-06-17] MEDS: amLODIPine 2.5 MG TAB PO SCH (08:57)
[2020-06-17] MEDS: METOPROLOL SUCCINATE (ER) 25 MG TAB.ER.24H PO SCH (08:57)
--- NOTE | 2020-06-17 12:56 | P.PN ---
Subjective Progress Note Date: 06/17/20 Patient was seen for a follow-up. Patient continues to be very encephalopathic. Slightly more responsive to painful stimuli. Does not answer any questions. Objective - Vital Signs Vital signs: Vital Signs Temp 100.9 F H 06/17/20 11:11 Pulse 127 H 06/17/20 11:11 Resp 38 H 06/17/20 11:11 BP 170/94 06/17/20 11:11 Pulse Ox 95 06/17/20 11:11 Intake & Output 06/16/20 06/17/20 06/17/20 18:59 06:59 18:59 Intake Total 1469.583 297.526 Output Total 275 300 400 Balance 1194.583 -2.474 -400 Weight 100 kg Intake: Intake, IV Titration 1469.583 297.526 Amount Diltiazem 125 mg In 129.583 85.833 Sodium Chloride 0.9% 100 ml @ 10 MG/HR 10 mls/hr IV .[id number] [facility] Rx#: [id number] Heparin Sod,Pork in 0.45% 30 211.693 NaCl 25,000 unit In 0.45 % NaCl 1 250ml.bag @ 10.2 UNITS/KG/HR 9.996 mls/hr IV .Q24H [facility] Rx#: [id number] Lactated Ringers 1,000 ml 800 @ 100 mls/hr IV .Q10H [facility] Rx#:[id number] Potassium Chloride 10 meq 400 In Water For Injection 1 100ml.bag @ 100 mls/hr IVPB Q1HR [facility] Rx#: [id number] Sodium Chloride 0.9% 1, 60 000 ml @ 130 mls/hr IV . Q7H42M [facility] Rx#:[id number] cefTRIAXone 2 gm In 50 Sodium Chloride 0.9% 50 ml @ 100 mls/hr IVPB Q24HR [facility] Rx#:[id number] Oral 0 Output: Urine 275 300 400 Other: Voiding Method Indwelling Catheter Indwelling Catheter Indwelling Catheter - Exam Patient is encephalopathic, keeps his eyes closed. Pupils are round and reacting. Face is symmetric. Tone is equal in the arms. Patient does move his arms, and moans on painful stimuli. The responses equally in all 4 extremities. Patient did not cooperate for cerebellar functions, or gait. - Labs CBC & Chem 7: 06/17/20 05:56 06/17/20 05:56 Labs: Abnormal Lab Results - Last 24 Hours (Table) 06/16/20 06/16/20 06/17/20 Range/Units 10:42 10:42 05:56 RBC (4.30-5.90) m/uL Lymphocytes # (1.0-4.8) k/uL APTT (22.0-30.0) sec D-Dimer 2.23 H (<0.60) mg/L FEU Sodium 149 H (137-145) mmol/L Chloride 119 H (98-107) mmol/L Carbon Dioxide 20 L (22-30) mmol/L BUN 42 H (9-20) mg/dL Creatinine 1.92 H (0.66-1.25) mg/dL Glucose 130 H (74-99) mg/dL C-Reactive Protein 134.2 H (<10.0) mg/L 06/17/20 06/17/20 Range/Units 05:56 05:56 RBC 4.27 L (4.30-5.90) m/uL Lymphocytes # 0.1 L (1.0-4.8) k/uL APTT 55.7 H (22.0-30.0) sec D-Dimer (<0.60) mg/L FEU Sodium (137-145) mmol/L Chloride (98-107) mmol/L Carbon Dioxide (22-30) mmol/L BUN (9-20) mg/dL Creatinine (0.66-1.25) mg/dL Glucose (74-99) mg/dL C-Reactive Protein (<10.0) mg/L Microbiology - Last 24 Hours (Table) 06/15/20 13:29 Blood Culture - Preliminary Blood No Growth after 24 hours 06/15/20 12:40 Blood Culture - Preliminary Blood No Growth after 24 hours Assessment and Plan Assessment: * Altered mental status, likely due to toxic metabolic encephalopathy. Patient has acute Covid 19 pneumonia. * Atrial fibrillation with rapid ventricular rate. Limited examination is n onfocal. * Elevated cardiac enzymes, possible troponin leak per cardiology. * Hypertension * Dyslipidemia. Plan: * EEG was abnormal, due to background disorganization and slowing of mild to moderate degree. This is suggestive of generalized cerebral dysfunction, as can be seen with toxic metabolic encephalopathy or due to diffuse structural brain abnormality. No epileptiform activity was seen. * Carotid Doppler revealed 50-69% stenosis on the right. Also mild to modera tely elevated left ECA velocity. Left vertebral artery not visualized. Right vertebral artery antegrade. * Patient has been started on heparin for atrial fibrillation. Limited examination is nonfocal. PTT 55.7. * We will follow.
--- NOTE | 2020-06-17 13:01 | P.PN ---
Subjective HISTORY OF PRESENTING ILLNESS This is a pleasant 79-year-old male past medical history significant for hypertension, dyslipidemia, frequent PVC's and recent COVID infection. He used to follow in the office with Dr. Sharpe. He has not followed since 2017. He is currently here being treated for COVID. We discussed the case with the nurse to prevent spread of infection. He presented to the hospital with altered mental status and decreased level of consciousness that is getting worse over the previous several days. He had been diagnosed with Covid recently. On arrival he was noted to be in atrial fibrillation with rapid ventricular rate. He was initiated on Cardizem infusion. Currently heart rates are in the 140s with blood pressure 25/86 and a temperature of 102.5F. Telemetry data reviewed, WBC 5.7, hemoglobin 13.9, platelets 204, d-dimer 2.23, sodium 144, potassium 3.3, creatinine 1.67, troponin 0.255. Most recent echocardiogram obtained in the office in 2015 reveals preserved LV systolic function with ejection fraction 65% with grade 1 diastolic dysfunction. 06/17/2020 Pt continues to be in atrial fibrillation with rapid ventricular rates. His rates are better controlled today, however still around 120. He is maintained on IV lopressor and cardizem infusion. Blood pressure 170/94 heart rate 127 and pitcher 100.9F and maintaining oxygen saturation on nasal cannula. PHYSICAL EXAMINATION CONSTITUTIONAL: No apparent distress. Full exam was deferred to do COVID 19 ASSESSMENT Covid 19 Paroxysmal atrial fibrillation, new onset with RVR Troponin leak secondary to infection Febrile illness Hypertension Dyslipidemia PLAN He is still not taking oral medications. Continue cardizem infusion and titrate up for heart rate along with IV lopresor as needed. Continue IV heparin for thromboembolic protection while he is not taking orals. Recommend conservative management given his current diagnosis of COVID 19 Nurse Practitioner note has been reviewed, I agree with a documented findings and plan of care. Patient was seen and examined. Objective - Vital Signs Vital signs: Vital Signs Temp 100.9 F H 06/17/20 11:11 Pulse 127 H 06/17/20 11:11 Resp 38 H 06/17/20 11:11 BP 170/94 06/17/20 11:11 Pulse Ox 95 06/17/20 11:11 Intake & Output 06/16/20 06/17/20 06/17/20 18:59 06:59 18:59 Intake Total 1469.583 297.526 Output Total 275 300 400 Balance 1194.583 -2.474 -400 Weight 100 kg Intake: Intake, IV Titration 1469.583 297.526 Amount Diltiazem 125 mg In 129.583 85.833 Sodium Chloride 0.9% 100 ml @ 10 MG/HR 10 mls/hr IV .[id number] [facility] Rx#: [id number] Heparin Sod,Pork in 0.45% 30 211.693 NaCl 25,000 unit In 0.45 % NaCl 1 250ml.bag @ 10.2 UNITS/KG/HR 9.996 mls/hr IV .Q24H [facility] Rx#: [id number] Lactated Ringers 1,000 ml 800 @ 100 mls/hr IV .Q10H [facility] Rx#:[id number] Potassium Chloride 10 meq 400 In Water For Injection 1 100ml.bag @ 100 mls/hr IVPB Q1HR [facility] Rx#: [id number] Sodium Chloride 0.9% 1, 60 000 ml @ 130 mls/hr IV . Q7H42M [facility] Rx#:[id number] cefTRIAXone 2 gm In 50 Sodium Chloride 0.9% 50 ml @ 100 mls/hr IVPB Q24HR [facility] Rx#:[id number] Oral 0 Output: Urine 275 300 400 Other: Voiding Method Indwelling Catheter Indwelling Catheter Indwelling Catheter - Labs CBC & Chem 7: 06/17/20 05:56 06/17/20 05:56 Labs: Abnormal Lab Results - Last 24 Hours (Table) 06/16/20 06/16/20 06/17/20 Range/Units 10:42 10:42 05:56 RBC (4.30-5.90) m/uL Lymphocytes # (1.0-4.8) k/uL APTT (22.0-30.0) sec D-Dimer 2.23 H (<0.60) mg/L FEU Sodium 149 H (137-145) mmol/L Chloride 119 H (98-107) mmol/L Carbon Dioxide 20 L (22-30) mmol/L BUN 42 H (9-20) mg/dL Creatinine 1.92 H (0.66-1.25) mg/dL Glucose 130 H (74-99) mg/dL C-Reactive Protein 134.2 H (<10.0) mg/L 06/17/20 06/17/20 Range/Units 05:56 05:56 RBC 4.27 L (4.30-5.90) m/uL Lymphocytes # 0.1 L (1.0-4.8) k/uL APTT 55.7 H (22.0-30.0) sec D-Dimer (<0.60) mg/L FEU Sodium (137-145) mmol/L Chloride (98-107) mmol/L Carbon Dioxide (22-30) mmol/L BUN (9-20) mg/dL Creatinine (0.66-1.25) mg/dL Glucose (74-99) mg/dL C-Reactive Protein (<10.0) mg/L Microbiology - Last 24 Hours (Table) 06/15/20 13:29 Blood Culture - Preliminary Blood No Growth after 24 hours 06/15/20 12:40 Blood Culture - Preliminary Blood No Growth after 24 hours
[2020-06-17] MEDS: DEXTROSE 5%-0.45% NACL 1,000 ML IV SCH ×2 (13:53→22:01)
[2020-06-17] MEDS: AZITHROMYCIN 500 MG in SODIUM CHLORIDE 0.9% 250 ML IVPB SCH (13:53)
--- NOTE | 2020-06-17 15:29 | P.CNPUL ---
History of Present Illness Consult date: 06/17/20 Reason for consult: dyspnea, hypoxemia, pneumonia Chief complaint: Asked to evaluate the patient for pneumonia History of present illness: 79-year-old male morbidly obese seen and evaluated examined on third floor patient is nonverbal and noncommunicative tachypneic tachycardic does not respond to physical stimuli patient is no code, moans very deep sternal rub, spiking up to 101, last set of respiratory sats are 95% on 6 L oxygen heart rate is 1:30 with respiratory rate of 40, patient has code 19 pneumonia also have chronic atrial fibrillation with RVR febrile illness, review of the data revealed that his prior medical history significant for hypertension, dyslipidemia, frequent PVC's and recent COVID infection. He is currently here being treated for COVID. He presented to the hospital with altered mental status and decreased level of consciousness that is getting worse over the previous several days. He had been diagnosed with Covid recently. On arrival he was noted to be in atrial fibrillation with rapid ventricular rate. He was initiated on Cardizem infusion. Currently heart rates are in the 140s with blood pressure 25/86 and a temperature of 102.5F. Telemetry data reviewed, WBC 5.7, hemoglobin 13.9, platelets 204, d-dimer 2.23, sodium 144, potassium 3.3, creatinine 1.67, troponin 0.255. Most recent echocardiogram obtained in the office in 2016 reveals preserved LV systolic function with ejection fraction 65% with grade 1 diastolic dysfunction. Review of Systems ROS unobtainable: due to mental status Past Medical History Past Medical History: Atrial Fibrillation, Heart Failure, Hyperlipidemia, Hyp ertension, Myocardial Infarction ([place]) Last Myocardial Infarction Date:: unknown History of Any Multi-Drug Resistant Organisms: None Reported Past Surgical History: Unable to Obtain Additional Past Surgical History / Comment(s): Back surgery (uses walker at home) Past Anesthesia/Blood Transfusion Reactions: No Reported Reaction Past Psychological History: No Psychological Hx Reported Smoking Status: Former smoker, Unknown if ever smoked Past Alcohol Use History: Unable to Obtain Past Drug Use History: Unable to Obtain Medications and Allergies Home Medications Medication Instructions Recorded Confirmed Type Allopurinol [Zyloprim] 100 mg PO DAILY 06/15/20 06/15/20 History Aspirin EC [Ecotrin Low Dose] 162 mg PO DAILY 06/15/20 06/15/20 History Atorvastatin Calcium [Lipitor] 10 mg PO HS 06/15/20 06/15/20 History DULoxetine HCL [Cymbalta] 30 mg PO HS 06/15/20 06/15/20 History Furosemide [Lasix] 40 mg PO DAILY@0600 06/15/20 06/15/20 History Memantine [Namenda] 10 mg PO BID 06/15/20 06/15/20 History Methadone [Dolophine] 5 - 10 mg PO Q8H PRN 06/15/20 06/15/20 History Metoprolol Succinate (ER) [Toprol 25 mg PO DAILY 06/15/20 06/15/20 History Xl] Nitroglycerin Sl Tabs [Nitrostat] 0.4 mg SL Q5M PRN 06/15/20 06/15/20 History amLODIPine [Norvasc] 2.5 mg PO DAILY 06/15/20 06/15/20 History Allergies Allergy/AdvReac Type Severity Reaction Status Date / Time GAIL Inhibitors Allergy Unknown Verified 06/15/20 12:09 mallampati Allergy Unknown Uncoded 06/15/20 12:09 Physical Exam Vitals: Vital Signs Temp Pulse Resp BP BP Pulse Ox 06/17/20 14:01 101.6 F H 06/17/20 13:17 127 H 38 H 06/17/20 11:11 100.9 F H 127 H 38 H 170/94 95 06/17/20 08:00 99.3 F 118 H 40 H 134/76 96 06/17/20 06:30 99.6 F 06/17/20 04:00 100.3 F H 111 H 26 H 164/79 99 06/17/20 00:00 101.4 F H 130 H 28 H 185/84 96 06/16/20 20:00 101 F H 125 H 24 171/77 96 06/16/20 16:25 101.1 F H 120 H 159/80 06/16/20 16:10 130 H Intake and Output 06/17/20 06/17/20 06/17/20 06:59 14:59 22:59 Intake Total 209.728 125 Output Total 300 400 Balance -90.272 -275 Intake: Intake, IV Titration 209.728 125 Amount Diltiazem 125 mg In 85.833 125 Sodium Chloride 0.9% 100 ml @ 10 MG/HR 10 mls/hr IV .[id number] AD[facility]N Rx#: [id number] Heparin Sod,Pork in 0.45% 123.895 NaCl 25,000 unit In 0.45 % NaCl 1 250ml.bag @ 10.2 UNITS/KG/HR 9.996 mls/hr IV .Q24H ADRI[facility]N Rx#: [id number] Output: Urine 300 400 Other: Voiding Method Indwelling Catheter Indwelling Catheter Weight 100 kg - Constitutional General appearance: disheveled, morbidly obese - EENT Ears: bilateral: normal - Neck Carotids: bilateral: upstroke normal Thyroid: bilateral: normal size - Respiratory Respiratory: bilateral: diminished - Cardiovascular Rhythm: irregularly irregular - Neurologic Nonverbal and noncommunicative moans to deep sternal rub Results - Laboratory Findings CBC and BMP: 06/17/20 05:56 06/17/20 05:56 PT/INR, D-dimer PT 10.4 sec (9.0-12.0) 06/16/20 10:42 INR 1.0 (<1.2) 06/16/20 10:42 D-Dimer 2.23 mg/L FEU (<0.60) H 06/16/20 10:42 Abnormal lab findings: Abnormal Labs 06/15/20 06/15/20 06/15/20 12:24 12:24 12:24 RBC 3.56 L Hgb 11.0 L Hct 31.6 L Lymphocytes # 0.3 L Monocytes # 1.3 H APTT D-Dimer Sodium Potassium 3.2 L Chloride Carbon Dioxide 21 L BUN 41 H Creatinine 1.73 H Glucose 150 H Troponin I 0.255 H* C-Reactive Protein Albumin 3.4 L Urine Protein Urine Methadone Screen 06/15/20 06/16/20 06/16/20 12:40 06:50 10:42 RBC Hgb Hct Lymphocytes # 0.1 L Monocytes # APTT D-Dimer Sodium Potassium 3.3 L Chloride 111 H Carbon Dioxide BUN 37 H Creatinine 1.67 H Glucose 127 H Troponin I C-Reactive Protein Albumin Urine Protein 1+ H Urine Methadone Screen Detected H 06/16/20 06/16/20 06/17/20 10:42 10:42 05:56 RBC Hgb Hct Lymphocytes # Monocytes # APTT D-Dimer 2.23 H Sodium 149 H Potassium Chloride 119 H Carbon Dioxide 20 L BUN 42 H Creatinine 1.92 H Glucose 130 H Troponin I C-Reactive Protein 134.2 H Albumin Urine Protein Urine Methadone Screen 06/17/20 06/17/20 05:56 05:56 RBC 4.27 L Hgb Hct Lymphocytes # 0.1 L Monocytes # APTT 55.7 H D-Dimer Sodium Potassium Chloride Carbon Dioxide BUN Creatinine Glucose Troponin I C-Reactive Protein Albumin Urine Protein Urine Methadone Screen - Diagnostic Findings Chest x-ray: report reviewed, image reviewed (Bilateral pneumonia with basal patchy infiltrate) Assessment and Plan Assessment: Metabolic encephalopathy and altered mental status due to severe sepsis likely due covid pneumonia Covid 19 pneumonia Secondary bacterial pneumonia Acute kidney injury Progressive developing metabolic acidosis Acute hypoxic respiratory failure A. fib with RVR Morbid obesity Hypertension hypertensive cardiovascular disease Plan: Agree with supplemental oxygen Patient is no code Overall prognosis is very poor with poor likelihood of recovery We will add IV steroids Consider comfort care measures Time with Patient: Greater than 30
--- NOTE | 2020-06-17 15:37 | EEG ---
ELECTROENCEPHALOGRAM REPORT DATE OF SERVICE: 06/17/2020 PREAMBLE: This is an 79-year-old male with altered mental status. This study is performed to evaluate for any epileptiform activity. EEG FINDINGS: This is a 21 channel routine EEG recording in a patient utilizing 10/20 international system with referential and bipolar montages. Background consists of well- developed, but poorly regulated, mixed frequencies of some alpha, theta and some in 2-3 hertz generalized delta activity. Background does not seem to be reactive to eye opening or closing. Photic driving response was not seen. No focal or generalized epileptiform activity was seen. Different stages of sleep were not seen. IMPRESSION: This is an abnormal EEG due to the background disorganization and slowing of mild to moderate degree. This is suggestive of generalized cerebral dysfunction as can be seen with toxic metabolic encephalopathy or due to diffuse structural brain abnormality. No epileptiform activity was seen. MMODL / IJN: [id number] / MTDD
[2020-06-17] MEDS: DULoxetine HCL 30 MG CAPSULE.DR PO SCH (20:53)
[2020-06-17] MEDS: ATORVASTATIN 10 MG TAB PO SCH (20:53)
[2020-06-17] MEDS: methylPREDNISolone SOD SUCCI 40 MG/ML 1 ML VIAL IV SCH (22:02)
[2020-06-18] MEDS: DILTIAZEM 125 MG in SODIUM CHLORIDE 0.9% 100 ML IV SCH ×2 (00:48→20:26)
[2020-06-18] MEDS: ACETAMINOPHEN SUPPOSITORY 650 MG SUPP RECTAL PRN (00:49)
[2020-06-18] MEDS: HEPARIN SOD,PORK IN 0.45% NACL 25,000 UNIT in 0.45% NACL 1 250ML.BAG IV SCH ×2 (00:50→22:07)
--- NOTE | 2020-06-18 01:03 | P.PN ---
Progress Note - Text Progress Note Date: 06/17/20 Chief Complaint: Decreased consciousness History of presenting complaint: This is a 79-year-old patientNaq who follows with at the [facility]. Chronic stable medical conditions include kidney stones GERD, mitral regurgitation, peripheral neuropathy, spinal stenosis, hard of hearing, vitamin D deficiency, coronary artery disease, hyperlipidemia, major depression, tricuspid regurgitation, atrial fibrillation, osteoarthritis. Delivery week ago patient had been apparently getting about was able to converse. Staff indicated of the EMS personnel that the patient had declined from being oriented walking around conversing when unresponsive state. On the last 2 days oral intake had practically ceased. Patient's blood pressure the morning was 200/120. He did receive metoprolol and amlodipine. Telemetry didn't show atrial fibrillation. Patient is lethargic. Opens his eyes. Not really able to give any history. Patient also positive for COVID 19 apparently on May 31or . Admitted with suspected COVID 19 pneumonia, secondary Bactrim pneumonia. On IV ceftriaxone Zithromax. 4 atrial fibrillation put on IV heparin. Today-. Instead lethargic. Febrile. Unable to eat. Pulmonary consulted Review of systems cannot be done as patient other lethargic Past medical history to include: Kidney stones, GERD, mitral regurgitation, peripheral neuropathy, spinal stenosis, hard of hearing, vitamin D deficiency, coronary artery disease, hyperlipidemia, major depression, tricuspid regurgitation, atrial fibrillation, osteoarthritis Past surgical history to include: Back surgery Social history: At the [facility]. Former smoker. Family history: Unable to obtain Physical examination: VITAL SIGNS: 102.9, 131, 40, 177 x 83, 92% on 2 L GENERAL: BMI 29.3, laying in bed, lethargic but arousable. EYES: Pupils equal. Conjunctiva pale. HEENT: External appearance of nose and ears normal, oral cavity dry mucous membranes. NECK: JVD not raised; masses not palpable. HEART: First and second heart sounds are normal; no edema. LUNGS:[ Respiratory rate increased; decreased breath sounds. ABDOMEN: Soft, nontender, liver spleen not palpable, no masses palpable. PSYCH: [Lethargic. NEUROLOGICAL: [Cranial nerves grossly intact; no facial asymmetry, moving his limbs INVESTIGATIONS, reviewed in the clinical context: EEG: Evidence of encephalopathy. No epileptiform activity. June 17: WBC 5.2 hemoglobin 13.2 sodium 149 potassium 3.8 bun 42 creatinine 1.9 to pro-calcitonin 1.3 WBC 5.7 hemoglobin 13.9 platelets 204 Potassium 3.2 bun 41 and creatinine 1.73 Troponin I 0.255 CRP 134 UA positive for protein 1+ Urine drug screen positive for methadone EKG tracing personally reviewed by me-atrial fibrillation with a rate of 129 Chest x-ray film personally reviewed by me-right basilar infiltrate Computed tomography scan of the brain: Aged related atrophy D-dimer 2.23, CRP 134 Assessment and plan: -This is a patient presents in the last 2 days has been progressively declining with decrease sensorium and poor oral intake. Differential includes ence phalopathy from underlying pneumonia. Resulting in severe dehydration. Also stroke needs to be ruled out -Right lower lobe pneumonia. Suspect gram-negative organism. Patient is on IV ceftriaxone. -Persistent atrial fibrillation. . Patient placed on IV heparin. Likely cause of the patient not being anticoagulated before was likely risk of falls -Chronic congestive heart failure EF not known -Essential hypertension, on Norvasc Toprol-XL -Hyperlipidemia, on Lipitor -Cognitive impairment patient on Namenda -Coronary artery disease with prior history of GA -COVID 19 pneumonitis. Patient's pulse ox is stable. No obvious indication for steroids. -Acute kidney injury likely prerenal. . DC Lasix. IV fluids. Worsening -DO NOT RESUSCITATE Sodium is climbing up. Creatinine is worsening. Increase IV fluids. Pulmonary was consulted. Prognosis guarded
[2020-06-18] MEDS: SODIUM CHLORIDE 0.9% 1,000 ML IV SCH ×2 (01:13→11:30)
[2020-06-18] MEDS ORDERED: cloNIDine 0.2 MG/24HR PATCH TRANSDERM SCH (01:15)
[2020-06-18] MEDS: DEXTROSE 5%-0.45% NACL 1,000 ML IV SCH ×3 (05:46→22:09)
[2020-06-18] MEDS: allopurinoL 100 MG TAB PO SCH (07:42)
[2020-06-18] MEDS: MEMANTINE 10 MG TAB PO SCH ×2 (07:43→20:27)
[2020-06-18] MEDS: amLODIPine 2.5 MG TAB PO SCH (07:43)
[2020-06-18] MEDS: ASPIRIN 81 MG PO SCH (07:43)
[2020-06-18] MEDS: methylPREDNISolone SOD SUCCI 40 MG/ML 1 ML VIAL IV SCH ×2 (08:05→22:05)
[2020-06-18] MEDS: AZITHROMYCIN 500 MG in SODIUM CHLORIDE 0.9% 250 ML IVPB SCH (09:22)
[2020-06-18 09:59] LABS: Basophils # (A) 0.1 k/uL (0-0.2); Basophils % (A) 1 %; Eosinophils % (A) 0 %; HCT 38.2 % (39.0-53.0); HGB 12.1 gm/dL (13.0-17.5); Lymphocytes # (A) 0.2 k/uL (1.0-4.8); Lymphocytes % (A) 3 %; MCH 29.5 pg (25.0-35.0); MCHC 31.7 g/dL (31.0-37.0); MCV 93.1 fL (80.0-100.0); Mean Platelet Volume 9.9; Monocytes # (A) 0.3 k/uL (0-1.0); Monocytes % (A) 7 %; Neutrophils # (A) 3.8 k/uL (1.3-7.7); Neutrophils % (A) 87 %; Platelet Count 189 k/uL (150-450); RDW 14.6 % (11.5-15.5); WBC 4.4 k/uL (3.8-10.6)
[2020-06-18 10:39] LABS: Calcium 8.3 mg/dL (8.4-10.2)
[2020-06-18 10:41] LABS: Potassium 3.4 mmol/L (3.5-5.1)
--- NOTE | 2020-06-18 13:37 | P.PN ---
Subjective Progress Note Date: 06/18/20 Patient was seen for a follow-up. Patient continues to be very encephalopathic. Per nurse, he is slightly better in response to his name but still very encephalopathic. Patient continues to be on heparin drip and Cardizem drip for atrial fibrillation. Continues to be lethargic. His temperatures and heart rate are better. Objective - Vital Signs Vital signs: Vital Signs Temp 98.4 F 06/18/20 11:48 Pulse 91 06/18/20 13:07 Resp 32 H 06/18/20 13:07 BP 143/70 06/18/20 11:48 Pulse Ox 95 06/18/20 11:48 Intake & Output 06/17/20 06/18/20 06/18/20 18:59 06:59 18:59 Intake Total 125 982.854 129.517 Output Total 900 400 Balance -775 582.854 129.517 Intake: Intake, IV Titration 125 982.854 129.517 Amount Dextrose 5%-0.45% NaCl 1, 625 000 ml @ 125 mls/hr IV . Q8H [facility]N Rx#:[id number] Diltiazem 125 mg In 125 109 Sodium Chloride 0.9% 100 ml @ 10 MG/HR 10 mls/hr IV .[id number] [facility]N Rx#: [id number] Heparin Sod,Pork in 0.45% 248.854 129.517 NaCl 25,000 unit In 0.45 % NaCl 1 250ml.bag @ 10.2 UNITS/KG/HR 9.996 mls/hr IV .Q24H ADRI[facility]N Rx#: [id number] Output: Urine 900 400 Other: Voiding Method Indwelling Catheter Indwelling Catheter Indwelling Catheter - Exam Patient is encephalopathic, keeps his eyes closed. Pupils are round and richie cting. Face is symmetric. Tone is equal in the arms. Patient does move his arms, and moans on painful stimuli. The responses equally in all 4 extremities. Patient did not cooperate for cerebellar functions, or gait. - Labs CBC & Chem 7: 06/18/20 09:19 06/18/20 09:19 Labs: Abnormal Lab Results - Last 24 Hours (Table) 06/17/20 06/18/20 06/18/20 Range/Units 05:56 09:19 09:19 RBC 4.10 L (4.30-5.90) m/uL Hgb 12.1 L (13.0-17.5) gm/dL Hct 38.2 L (39.0-53.0) % Lymphocytes # 0.2 L (1.0-4.8) k/uL APTT 155.5 H* (22.0-30.0) sec Sodium (137-145) mmol/L Potassium (3.5-5.1) mmol/L Chloride (98-107) mmol/L Carbon Dioxide (22-30) mmol/L BUN (9-20) mg/dL Creatinine (0.66-1.25) mg/dL Glucose (74-99) mg/dL Calcium (8.4-10.2) mg/dL Procalcitonin 1.30 H (0.02-0.09) ng/mL 06/18/20 Range/Units 09:19 RBC (4.30-5.90) m/uL Hgb (13.0-17.5) gm/dL Hct (39.0-53.0) % Lymphocytes # (1.0-4.8) k/uL APTT (22.0-30.0) sec Sodium 150 H (137-145) mmol/L Potassium 3.4 L (3.5-5.1) mmol/L Chloride 122 H (98-107) mmol/L Carbon Dioxide 17 L (22-30) mmol/L BUN 43 H (9-20) mg/dL Creatinine 1.83 H (0.66-1.25) mg/dL Glucose 203 H (74-99) mg/dL Calcium 8.3 L (8.4-10.2) mg/dL Procalcitonin (0.02-0.09) ng/mL Microbiology - Last 24 Hours (Table) 06/15/20 12:40 Blood Culture - Preliminary Blood No Growth after 48 hours 06/15/20 13:29 Blood Culture - Preliminary Blood No Growth after 48 hours Assessment and Plan Assessment: * Altered mental status, likely due to toxic metabolic encephalopathy. Patient has acute Covid 19 pneumonia. * Hypernatremia with sodium 150, hypokalemia, renal insufficiency * Atrial fibrillation with rapid ventricular rate. Limited examination is nonfocal. * Elevated cardiac enzymes, possible troponin leak per cardiology. * Hypertension * Dyslipidemia. Plan: * EEG was abnormal, due to background disorganization and slowing of mild to moderate degree. This is suggestive of generalized cerebral dysfunction, as can be seen with toxic metabolic encephalopathy or due to diffuse structural brain abnormality. No epileptiform activity was seen. * Carotid Doppler revealed 50-69% stenosis on the right. Also mild to moderately elevated left ECA velocity. Left vertebral artery not visualized. Right vertebral artery antegrade. * Patient has been started on heparin for atrial fibrillation. Current PTT 155. Limited examination is nonfocal. Consider starting oral anticoagulants, when able to take by mouth. At present patient to lethargic. Continue IV fluids, hydration.
--- NOTE | 2020-06-18 13:54 | P.PN ---
Subjective HISTORY OF PRESENTING ILLNESS This is a pleasant 79-year-old male past medical history significant for hypertension, dyslipidemia, frequent PVC's and recent COVID infection. He used to follow in the office with Dr. Sharpe. He has not followed since 2017. He is currently here being treated for COVID. We discussed the case with the nurse to prevent spread of infection. He presented to the hospital with altered mental status and decreased level of consciousness that is getting worse over the previous several days. He had been diagnosed with Covid recently. On arrival he was noted to be in atrial fibrillation with rapid ventricular rate. He was initiated on Cardizem infusion. Currently heart rates are in the 140s with blood pressure 25/86 and a temperature of 102.5F. Telemetry data reviewed, WBC 5.7, hemoglobin 13.9, platelets 204, d-dimer 2.23, sodium 144, potassium 3.3, creatinine 1.67, troponin 0.255. Most recent echocardiogram obtained in the office in 2015 reveals preserved LV systolic function with ejection fraction 65% with grade 1 diastolic dysfunction. 06/18/2020 Pt continues to be in atrial fibrillation with increased ventricular rates. He is still not taking PO. Maintained on cardizem infusion and IVP lopressor as needed with heparin gtt for thromboembolic protection. Blood pressure 143/70 heart rate 91 and maintaining oxygen saturation on nasal cannula. PHYSICAL EXAMINATION CONSTITUTIONAL: No apparent distress. Full exam was deferred to do COVID 19 ASSESSMENT Covid 19 Paroxysmal atrial fibrillation, new onset with RVR Troponin leak secondary to infection Febrile illness Hypertension Dyslipidemia PLAN He is still not taking oral medications. Continue cardizem infusion and titrate up for heart rate along with IV lopresor as needed. Continue IV heparin for thromboembolic protection while he is not taking orals. Recommend conservative management given his current diagnosis of COVID 19. Prognosis guarded. Nurse Practitioner note has been reviewed, I agree with a documented findings and plan of care. Patient was seen and examined. Objective - Vital Signs Vital signs: Vital Signs Temp 98.4 F 06/18/20 11:48 Pulse 91 06/18/20 13:07 Resp 32 H 06/18/20 13:07 BP 143/70 06/18/20 11:48 Pulse Ox 95 06/18/20 11:48 Intake & Output 06/17/20 06/18/20 06/18/20 18:59 06:59 18:59 Intake Total 125 982.854 129.517 Output Total 900 400 Balance -775 582.854 129.517 Intake: Intake, IV Titration 125 982.854 129.517 Amount Dextrose 5%-0.45% NaCl 1, 625 000 ml @ 125 mls/hr IV . Q8H [facility] Rx#:[id number] Diltiazem 125 mg In 125 109 Sodium Chloride 0.9% 100 ml @ 10 MG/HR 10 mls/hr IV .[id number] [facility]N Rx#: [id number] Heparin Sod,Pork in 0.45% 248.854 129.517 NaCl 25,000 unit In 0.45 % NaCl 1 250ml.bag @ 10.2 UNITS/KG/HR 9.996 mls/hr IV .Q24H [facility]RI[facility]N Rx#: [id number] Output: Urine 900 400 Other: Voiding Method Indwelling Catheter Indwelling Catheter Indwelling Catheter - Labs CBC & Chem 7: 06/18/20 09:19 06/18/20 09:19 Labs: Abnormal Lab Results - Last 24 Hours (Table) 06/17/20 06/18/20 06/18/20 Range/Units 05:56 09:19 09:19 RBC 4.10 L (4.30-5.90) m/uL Hgb 12.1 L (13.0-17.5) gm/dL Hct 38.2 L (39.0-53.0) % Lymphocytes # 0.2 L (1.0-4.8) k/uL APTT 155.5 H* (22.0-30.0) sec Sodium (137-145) mmol/L Potassium (3.5-5.1) mmol/L Chloride (98-107) mmol/L Carbon Dioxide (22-30) mmol/L BUN (9-20) mg/dL Creatinine (0.66-1.25) mg/dL Glucose (74-99) mg/dL Calcium (8.4-10.2) mg/dL Procalcitonin 1.30 H (0.02-0.09) ng/mL 06/18/20 Range/Units 09:19 RBC (4.30-5.90) m/uL Hgb (13.0-17.5) gm/dL Hct (39.0-53.0) % Lymphocytes # (1.0-4.8) k/uL APTT (22.0-30.0) sec Sodium 150 H (137-145) mmol/L Potassium 3.4 L (3.5-5.1) mmol/L Chloride 122 H (98-107) mmol/L Carbon Dioxide 17 L (22-30) mmol/L BUN 43 H (9-20) mg/dL Creatinine 1.83 H (0.66-1.25) mg/dL Glucose 203 H (74-99) mg/dL Calcium 8.3 L (8.4-10.2) mg/dL Procalcitonin (0.02-0.09) ng/mL Microbiology - Last 24 Hours (Table) 06/15/20 12:40 Blood Culture - Preliminary Blood No Growth after 48 hours 06/15/20 13:29 Blood Culture - Preliminary Blood No Growth after 48 hours
--- NOTE | 2020-06-18 15:33 | P.PN ---
Subjective Progress Note Date: 06/18/20 Principal diagnosis: Metabolic encephalopathy and altered mental status due to severe sepsis likely due covid pneumonia Covid 19 pneumonia Secondary bacterial pneumonia Acute kidney injury Progressive developing metabolic acidosis Acute hypoxic respiratory failure A. fib with RVR Morbid obesity Hypertension hypertensive cardiovascular disease 06/18/2020, patient seen eval reexamined during the rounds labs reviewed medications reviewed, respiratory status remains marginal however oxygen is down to 4 L nasal cannula, mental status slightly improved and elevated now he is responding to deep sternal rub more moans, tries to open his eyes, he still afebrile today he spiked however up to 102 yesterday, respiratory rate is down into 30s, blood pressure is stable, oxygen saturation is 95%, blood cultures no growth so far, labs reviewed white cell count is 4400 with stable hemoglobin, PTT is 155, sodium is 150, potassium is 3.4, chloride up to 122, BUN/creatinine slightly better 43 and 1.83, patient remains on his home medications which oral medicines are being held, on broad-spectrum antibiotics with Zithromax, IV diltiazem, heparin drip, Solu-Medrol and supplemental oxygen 79-year-old male morbidly obese seen and evaluated examined on third floor patient is nonverbal and noncommunicative tachypneic tachycardic does not respond to physical stimuli patient is no code, moans very deep sternal rub, spiking up to 101, last set of respiratory sats are 95% on 6 L oxygen heart rate is 1:30 with respiratory rate of 40, patient has code 19 pneumonia also have ch ronic atrial fibrillation with RVR febrile illness, review of the data revealed that his prior medical history significant for hypertension, dyslipidemia, frequent PVC's and recent COVID infection. He is currently here being treated for COVID. He presented to the hospital with altered mental status and decreased level of consciousness that is getting worse over the previous several days. He had been diagnosed with Covid recently. On arrival he was noted to be in atrial fibrillation with rapid ventricular rate. He was initiated on Cardizem infusion. Currently heart rates are in the 140s with blood pressure 25/86 and a temperature of 102.5F. Telemetry data reviewed, WBC 5.7, hemoglobin 13.9, platelets 204, d-dimer 2.23, sodium 144, potassium 3.3, creatinine 1.67, troponin 0.255. Most recent echocardiogram obtained in the office in 2016 reveals preserved LV systolic function with ejection fraction 65% with grade 1 diastolic dysfunction. Objective - Vital Signs Vital signs: Vital Signs Temp 98.4 F 06/18/20 11:48 Pulse 91 06/18/20 13:07 Resp 32 H 06/18/20 13:07 BP 143/70 06/18/20 11:48 Pulse Ox 95 06/18/20 11:48 Intake & Output 06/17/20 06/18/20 06/18/20 18:59 06:59 18:59 Intake Total 125 982.854 254.517 Output Total 900 400 Balance -775 582.854 254.517 Intake: Intake, IV Titration 125 982.854 254.517 Amount Dextrose 5%-0.45% NaCl 1, 625 000 ml @ 125 mls/hr IV . Q8H [facility] Rx#:[id number] Diltiazem 125 mg In 125 109 125 Sodium Chloride 0.9% 100 ml @ 10 MG/HR 10 mls/hr IV .[id number] [facility] Rx#: [id number] Heparin Sod,Pork in 0.45% 248.854 129.517 NaCl 25,000 unit In 0.45 % NaCl 1 250ml.bag @ 10.2 UNITS/KG/HR 9.996 mls/hr IV .Q24H [facility] Rx#: [id number] Output: Urine 900 400 Other: Voiding Method Indwelling Catheter Indwelling Catheter Indwelling Catheter - Exam - Constitutional General appearance: disheveled, morbidly obese - EENT Ears: bilateral: normal - Neck Carotids: bilateral: upstroke normal Thyroid: bilateral: normal size - Respiratory Respiratory: bilateral: diminished - Cardiovascular Rhythm: irregularly irregular - Neurologic Nonverbal and noncommunicative however slightly more responsive today compared to yesterday exam - Labs CBC & Chem 7: 06/18/20 09:19 06/18/20 09:19 Labs: Abnormal Lab Results - Last 24 Hours (Table) 06/17/20 06/18/20 06/18/20 Range/Units 05:56 09:19 09:19 RBC 4.10 L (4.30-5.90) m/uL Hgb 12.1 L (13.0-17.5) gm/dL Hct 38.2 L (39.0-53.0) % Lymphocytes # 0.2 L (1.0-4.8) k/uL APTT 155.5 H* (22.0-30.0) sec Sodium (137-145) mmol/L Potassium (3.5-5.1) mmol/L Chloride (98-107) mmol/L Carbon Dioxide (22-30) mmol/L BUN (9-20) mg/dL Creatinine (0.66-1.25) mg/dL Glucose (74-99) mg/dL Calcium (8.4-10.2) mg/dL Procalcitonin 1.30 H (0.02-0.09) ng/mL 06/18/20 Range/Units 09:19 RBC (4.30-5.90) m/uL Hgb (13.0-17.5) gm/dL Hct (39.0-53.0) % Lymphocytes # (1.0-4.8) k/uL APTT (22.0-30.0) sec Sodium 150 H (137-145) mmol/L Potassium 3.4 L (3.5-5.1) mmol/L Chloride 122 H (98-107) mmol/L Carbon Dioxide 17 L (22-30) mmol/L BUN 43 H (9-20) mg/dL Creatinine 1.83 H (0.66-1.25) mg/dL Glucose 203 H (74-99) mg/dL Calcium 8.3 L (8.4-10.2) mg/dL Procalcitonin (0.02-0.09) ng/mL Microbiology - Last 24 Hours (Table) 06/15/20 12:40 Blood Culture - Preliminary Blood No Growth after 48 hours 06/15/20 13:29 Blood Culture - Preliminary Blood No Growth after 48 hours Assessment and Plan Assessment: Hypernatremia Metabolic encephalopathy and altered mental status due to severe sepsis likely due covid pneumonia Covid 19 pneumonia Secondary bacterial pneumonia Acute kidney injury Severe acute metabolic acidosis from multiple sources slowly improving Acute hypoxic respiratory failure A. fib with RVR Morbid obesity Hypertension hypertensive cardiovascular disease Plan: Agree with supplemental oxygen Monitor electrolytes closely including renal functions Continue dextrose water Patient is no code Overall prognosis is very poor with poor likelihood of recovery Continue IV steroids Continue IV heparin for A. fib RVR as well as IV Cardizem Continue supportive care Consider comfort care measures Time with Patient: Greater than 30
[2020-06-18] MEDS: METOPROLOL TARTRATE 5 MG/5 ML VIAL IVP PRN (15:55)
[2020-06-18] MEDS: DULoxetine HCL 30 MG CAPSULE.DR PO SCH (20:27)
[2020-06-18] MEDS: ATORVASTATIN 10 MG TAB PO SCH (20:27)
[2020-06-18] MEDS ORDERED: DEXTROSE 5% IN WATER 100 ML with AMIODARONE 150 MG IV ONE (21:19)
[2020-06-18] MEDS: POTASSIUM CHLORIDE 10 MEQ in WATER FOR INJECTION 1 100ML.BAG IVPB SCH ×2 (22:06→23:45)
--- NOTE | 2020-06-18 23:32 | P.PN ---
Progress Note - Text Progress Note Date: 06/18/20 Chief Complaint: Decreased consciousness History of presenting complaint: This is a 79-year-old patientNaq who follows with at the [facility]. Chronic stable medical conditions include kidney stones GERD, mitral regurgitation, peripheral neuropathy, spinal stenosis, hard of hearing, vitamin D deficiency, coronary artery disease, hyperlipidemia, major depression, tricuspid regurgitation, atrial fibrillation, osteoarthritis. Delivery week ago patient had been apparently getting about was able to converse. Staff indicated of the EMS personnel that the patient had declined from being oriented walking around conversing when unresponsive state. On the last 2 days oral intake had practically ceased. Patient's blood pressure the morning was 200/120. He did receive metoprolol and amlodipine. Telemetry didn't show atrial fibrillation. Patient is lethargic. Opens his eyes. Not really able to give any history. Patient also positive for COVID 19 apparently on May 31or . Admitted with suspected COVID 19 pneumonia, secondary bacterial pneumonia. On I V ceftriaxone Zithromax. 4 atrial fibrillation put on IV heparin. IV Cardizem. IV Lopressor when necessary Today-. Fevers still present. But coming down . open eyes a bit. Remains on IV Cardizem drip and IV Lopressor when necessary. Not able to eat Review of systems cannot be done as patient is lethargic Active Medications Acetaminophen (Acetaminophen Suppository 650 Mg Supp) 650 mg RECTAL Q6HR PRN PRN Reason: Fever and/ or Pain Last Admin: 06/18/20 00:49 Dose: 650 mg Documented by: Allopurinol (Allopurinol 100 Mg Tab) 100 mg PO DAILY [facility] Last Admin: 06/18/20 07:42 Dose: Not Given Documented by: Amlodipine Besylate (Amlodipine 2.5 Mg Tab) 2.5 mg PO DAILY [facility] Last Admin: 06/18/20 07:43 Dose: Not Given Documented by: Aspirin (Aspirin 81 Mg) 81 mg PO DAILY [facility] Last Admin: 06/18/20 07:43 Dose: Not Given Documented by: Atorvastatin Calcium (Atorvastatin 10 Mg Tab) 10 mg PO HS [facility] Last Admin: 06/18/20 20:27 Dose: Not Given Documented by: Clonidine HCl (Clonidine 0.2 Mg/24hr Patch) 1 patch TRANSDERM Q7D [facility] Last Admin: 06/18/20 02:04 Dose: 1 patch Documented by: Duloxetine HCl (Duloxetine Hcl 30 Mg Capsule.Dr) 30 mg PO HS [facility] Last Admin: 06/18/20 20:27 Dose: Not Given Documented by: Heparin Sodium (Porcine) (Heparin Sodium,Porcine 5,000 Unit/Ml 1 Ml Vial) 0 unit IV PER PROTOCOL PRN; Protocol PRN Reason: Low PTT Diltiazem HCl 125 mg/ Sodium (Chloride) 125 mls @ 10 mls/hr IV .[id number] [facility] Last Admin: 06/18/20 20:26 Dose: 10 mg/hr, 10 mls/hr Documented by: Heparin Sodium/Sodium Chloride (25,000 unit/ Sodium Chloride) 250 mls @ 9.996 mls/hr IV .Q24H [facility]; Protocol Last Admin: 06/18/20 22:07 Dose: 10.26 units/kg/hr, 10.055 mls/hr Documented by: Dextrose/Sodium Chloride (Dextrose 5%-1/2ns Iv Soln) 1,000 mls @ 125 mls/hr IV .Q8H [facility] Last Admin: 06/18/20 22:09 Dose: 125 mls/hr Documented by: Azithromycin 500 mg/ Sodium (Chloride) 250 mls @ 250 mls/hr IVPB DAILY [facility] Last Admin: 06/18/20 09:22 Dose: 250 mls/hr Documented by: Potassium Chloride 10 meq/ IV (Solution) 100 mls @ 100 mls/hr IVPB Q1HR [facility]; Protocol Stop: 06/19/20 00:59 Last Admin: 06/18/20 22:06 Dose: 100 mls/hr Documented by: Memantine (Memantine 10 Mg Tab) 10 mg PO BID [facility] Last Admin: 06/18/20 20:27 Dose: Not Given Documented by: Methadone HCl (Methadone 5 Mg Tab) 5 mg PO Q8H PRN PRN Reason: Pain Methylprednisolone Sodium Succinate (Methylprednisolone Sod Succi 40 Mg/Ml 1 Ml Vial) 40 mg IV Q12HR [facility] Last Admin: 06/18/20 22:05 Dose: 40 mg Documented by: Metoprolol Tartrate (Metoprolol Tartrate 5 Mg/5 Ml Vial) 5 mg IVP Q6HR PRN PRN Reason: Cardiac Arrhythmia Last Admin: 06/18/20 15:55 Dose: 5 mg Documented by: Miscellaneous Information (Pneumonia Protocol Utilized 1 Each Misc) 1 each PO ONCE PRN PRN Reason: Per Protocol Miscellaneous Information (Potassium Replacement Protocol 1 Each [facility] 1 each MISCELLANE DAILY PRN; Protocol PRN Reason: Per Protocol Nitroglycerin (Nitroglycerin Sl Tabs 0.4 Mg Tab) 0.4 mg SUBLINGUAL Q5M PRN PRN Reason: Chest Pain Past medical history to include: Kidney stones, GERD, mitral regurgitation, peripheral neuropathy, spinal stenosis, hard of hearing, vitamin D deficiency, coronary artery disease, hyperlipidemia, major depression, tricuspid regurgitation, atrial fibrillation, osteoarthritis Past surgical history to include: Back surgery Social history: At the [facility]. Former smoker. Family history: Unable to obtain Physical examination: VITAL SIGNS: T-max 101.8 last night, afebrile this morning, 90, 32, 147 with 67, 95% on 4 L GENERAL: BMI 29.3, laying in bed, lethargic but more arousable. EYES: Pupils equal. Conjunctiva pale. HEENT: External appearance of nose and ears normal, oral cavity dry mucous membranes. NECK: JVD not raised; masses not palpable. HEART: Heart sounds irregular; no edema. LUNGS:[ Respiratory rate increased; decreased breath sounds. ABDOMEN: Soft, nontender, liver spleen not palpable, no masses palpable. PSYCH: [Lethargic. NEUROLOGICAL: [Cranial nerves grossly intact; no facial asymmetry, moving his limbs INVESTIGATIONS, reviewed in the clinical context: June 18: WBC 4.4 hemoglobin 12.1 platelets 189 sodium 150 potassium 3.4 bun 43 creatinine 1.83 EEG: Evidence of encephalopathy. No epileptiform activity. June 17: WBC 5.2 hemoglobin 13.2 sodium 149 potassium 3.8 bun 42 creatinine 1.9 to pro-calcitonin 1.3 WBC 5.7 hemoglobin 13.9 platelets 204 Potassium 3.2 bun 41 and creatinine 1.73 Troponin I 0.255 CRP 134 UA positive for protein 1+ Urine drug screen positive for methadone EKG tracing personally reviewed by me-atrial fibrillation with a rate of 129 Chest x-ray film personally reviewed by me-right basilar infiltrate Computed tomography scan of the brain: Aged related atrophy D-dimer 2.23, CRP 134 Assessment and plan: -This is a patient presents in the last 2 days has been progressively declining with decrease sensorium and poor oral intake. Differential includes encephalopathy from underlying pneumonia. Resulting in severe dehydration. -Right lower lobe pneumonia. Suspect gram-negative organism. Patient is on IV ceftriaxone/Zithromax.-Slow to respond -Severe Sepsis from pneumonia, POA -Persistent atrial fibrillation. on IV heparin. Likely cause of the patient not being anticoagulated before was likely risk of falls.On IV Cardizem -Chronic congestive heart failure EF not known -Essential hypertension,on Catapres patch -Hyperlipidemia, on Lipitor -Cognitive impairment patient on Namenda -Coronary artery disease with prior history of GA -COVID 19 pneumonitis. On steroids -Acute kidney injury likely prerenal. . DC Lasix. IV fluids. Slow to respond -Acute metabolic/toxic encephalopathy and delirium from sepsis -Hypernatremia, worsening from free water deficit. IV fluids -Metabolic acidosis from renal failure -DO NOT RESUSCITATE Prognosis doesn't look good. Continue with IV ceftriaxone and IV fluids IV heparin IV Cardizem. Follow with consultants
[2020-06-19] MEDS: POTASSIUM CHLORIDE 10 MEQ in WATER FOR INJECTION 1 100ML.BAG IVPB SCH ×2 (01:02→03:53)
[2020-06-19] MEDS: METOPROLOL TARTRATE 5 MG/5 ML VIAL IVP PRN (04:05)
[2020-06-19] MEDS: DILTIAZEM 125 MG in SODIUM CHLORIDE 0.9% 100 ML IV SCH (04:20)
[2020-06-19] MEDS: DEXTROSE 5%-0.45% NACL 1,000 ML IV SCH ×2 (06:49→13:14)
[2020-06-19 10:43] LABS: Calcium 8.7 mg/dL (8.4-10.2)
[2020-06-19 10:59] LABS: HCT 41.9 % (39.0-53.0); HGB 13.1 gm/dL (13.0-17.5); Hypochromasia Slight; MCHC 31.2 g/dL (31.0-37.0); MCV 92.7 fL (80.0-100.0); Mean Platelet Volume 10.6; Platelet Count 242 k/uL (150-450); RBC 4.52 m/uL (4.30-5.90); RDW 14.6 % (11.5-15.5)
--- NOTE | 2020-06-19 11:12 | P.PN ---
Subjective Progress Note Date: 06/19/20 Principal diagnosis: Metabolic encephalopathy and altered mental status due to severe sepsis likely due covid pneumonia Covid 19 pneumonia Secondary bacterial pneumonia Acute kidney injury Progressive developing metabolic acidosis Acute hypoxic respiratory failure A. fib with RVR Morbid obesity Hypertension hypertensive cardiovascular disease 06/19/2020, patient seen eval examined during the rounds labs reviewed medications reviewed care plan discussed, patient remains poorly responsive tachypneic tachycardic on 4 L oxygen significant change has been noted, patient remains on IV antibiotics for pneumonia tolerating well 06/18/2020, patient seen eval reexamined during the rounds labs reviewed medications reviewed, respiratory status remains marginal however oxygen is down to 4 L nasal cannula, mental status slightly improved and elevated now he is responding to deep sternal rub more moans, tries to open his eyes, he still afebrile today he spiked however up to 102 yesterday, respiratory rate is down into 30s, blood pressure is stable, oxygen saturation is 95%, blood cultures no growth so far, labs reviewed white cell count is 4400 with stable hemoglobin, PTT is 155, sodium is 150, potassium is 3.4, chloride up to 122, BUN/creatinine slightly better 43 and 1.83, patient remains on his home medications which oral medicines are being held, on broad-spectrum antibiotics with Zithromax, IV diltiazem, heparin drip, Solu-Medrol and supplemental oxygen 79-year-old male morbidly obese seen and evaluated examined on third floor patient is nonverbal and noncommunicative tachypneic tachycardic does not respond to physical stimuli patient is no code, moans very deep sternal rub, spiking up to 101, last set of respiratory sats are 95% on 6 L oxygen heart rate is 1:30 with respiratory rate of 40, patient has code 19 pneumonia also have chronic atrial fibrillation with RVR febrile illness, review of the data revealed that his prior medical history significant for hypertension, dyslipidemia, frequent PVC's and recent COVID infection. He is currently here being treated for COVID. He presented to the hospital with altered mental status and decreased level of consciousness that is getting worse over the previous several days. He had been diagnosed with Covid recently. On arrival he was noted to be in atrial fibrillation with rapid ventricular rate. He was initiated on Cardizem infusion. Currently heart rates are in the 140s with blood pressure 25/86 and a temperature of 102.5F. Telemetry data reviewed, WBC 5.7, hemoglobin 13.9, platelets 204, d-dimer 2.23, sodium 144, potassium 3.3, creatinine 1.67, troponin 0.255. Most recent echoca rdiogram obtained in the office in 2015 reveals preserved LV systolic function with ejection fraction 65% with grade 1 diastolic dysfunction. Objective - Vital Signs Vital signs: Vital Signs Temp 99.4 F 06/19/20 03:59 Pulse 96 06/19/20 04:13 Resp 40 H 06/19/20 03:59 BP 170/90 06/19/20 04:13 Pulse Ox 92 L 06/19/20 03:59 Intake & Output 06/18/20 06/19/20 06/19/20 18:59 06:59 18:59 Intake Total 254.517 175.863 Output Total 1600 410 Balance -1345.483 -234.137 Weight 105.5 kg Intake: Intake, IV Titration 254.517 175.863 Amount Diltiazem 125 mg In 125 79 Sodium Chloride 0.9% 100 ml @ 10 MG/HR 10 mls/hr IV .[id number] [facility] Rx#: [id number] Heparin Sod,Pork in 0.45% 129.517 96.863 NaCl 25,000 unit In 0.45 % NaCl 1 250ml.bag @ 10.2 UNITS/KG/HR 9.996 mls/hr IV .Q24H [facility] Rx#: [id number] Output: Urine 1600 410 Other: Voiding Method Indwelling Catheter Indwelling Catheter # Bowel Movements 1 - Exam - Constitutional General appearance: disheveled, morbidly obese - EENT Ears: bilateral: normal - Neck Carotids: bilateral: upstroke normal Thyroid: bilateral: normal size - Respiratory Respiratory: bilateral: diminished - Cardiovascular Rhythm: irregularly irregular - Neurologic Nonverbal and noncommunicative however slightly more responsive today compared to yesterday exam - Labs CBC & Chem 7: 06/19/20 09:32 06/19/20 09:32 Labs: Abnormal Lab Results - Last 24 Hours (Table) 06/18/20 06/19/20 06/19/20 Range/Units 19:32 09:32 09:32 WBC 11.3 H (3.8-10.6) k/uL APTT 55.9 H (22.0-30.0) sec Sodium 148 H (137-145) mmol/L Chloride 121 H (98-107) mmol/L Carbon Dioxide 17 L (22-30) mmol/L BUN 47 H (9-20) mg/dL Creatinine 1.79 H (0.66-1.25) mg/dL Glucose 178 H (74-99) mg/dL 06/19/20 Range/Units 09:32 WBC (3.8-10.6) k/uL APTT 43.7 H (22.0-30.0) sec Sodium (137-145) mmol/L Chloride (98-107) mmol/L Carbon Dioxide (22-30) mmol/L BUN (9-20) mg/dL Creatinine (0.66-1.25) mg/dL Glucose (74-99) mg/dL Microbiology - Last 24 Hours (Table) 06/15/20 12:40 Blood Culture - Preliminary Blood No Growth after 72 hours 06/15/20 13:29 Blood Culture - Preliminary Blood No Growth after 72 hours Assessment and Plan Assessment: Hypernatremia Metabolic encephalopathy and altered mental status due to severe sepsis likely due covid pneumonia Covid 19 pneumonia Secondary bacterial pneumonia Acute kidney injury Severe acute metabolic acidosis from multiple sources slowly improving Acute hypoxic respiratory failure A. fib with RVR Morbid obesity Hypertension hypertensive cardiovascular disease Plan: Agree with supplemental oxygen Continue broad-spectrum antibiotics Monitor electrolytes closely including renal functions Continue dextrose water Patient is no code Overall prognosis is very poor with poor likelihood of recovery Continue IV steroids Continue IV heparin for A. fib RVR as well as IV Cardizem Continue supportive care Consider comfort care measures if there is no meaningful improvement noted Time with Patient: Greater than 30
[2020-06-19 11:23] LABS: Band Neutrophils % 6 %; Lymphocytes # (M) 0.45 k/uL (1.0-4.8); Metamyelocytes # (M) 0.11 k/uL (0); Metamyelocytes % 1 %; Neutrophils % (M) 82 %; Nucleated Red Blood Cells 1 /100 WBC (0-0); Total Cells Counted 200; WBC 11.2 k/uL (3.8-10.6)
[2020-06-19] MEDS ORDERED: METOPROLOL TARTRATE 5 MG/5 ML VIAL IVP SCH (12:00)
[2020-06-19] MEDS: ACETAMINOPHEN SUPPOSITORY 650 MG SUPP RECTAL PRN (12:25)
[2020-06-19] MEDS: MEMANTINE 10 MG TAB PO SCH (12:41)
[2020-06-19] MEDS: allopurinoL 100 MG TAB PO SCH (12:41)
[2020-06-19] MEDS: ASPIRIN 81 MG PO SCH (12:41)
[2020-06-19] MEDS: amLODIPine 2.5 MG TAB PO SCH (12:41)
--- NOTE | 2020-06-19 13:09 | P.PN ---
Subjective Progress Note Date: 06/19/20 Patient was seen for a follow-up. Patient continues to be very encephalopathic. Per nurse, he is slightly better in response to his name but still very encephalopathic. Patient continues to be on heparin drip and Cardizem drip for atrial fibrillation. Continues to be lethargic. His temperatures and heart rate are better. T-max is 99.4, heart rate around 118 Objective - Vital Signs Vital signs: Vital Signs Temp 99.4 F 06/19/20 03:59 Pulse 96 06/19/20 04:13 Resp 40 H 06/19/20 03:59 BP 170/90 06/19/20 04:13 Pulse Ox 92 L 06/19/20 03:59 Intake & Output 06/18/20 06/19/20 06/19/20 18:59 06:59 18:59 Intake Total 254.517 175.863 Output Total 1600 410 Balance -1345.483 -234.137 Weight 105.5 kg Intake: Intake, IV Titration 254.517 175.863 Amount Diltiazem 125 mg In 125 79 Sodium Chloride 0.9% 100 ml @ 10 MG/HR 10 mls/hr IV .[id number] [facility] Rx#: [id number] Heparin Sod,Pork in 0.45% 129.517 96.863 NaCl 25,000 unit In 0.45 % NaCl 1 250ml.bag @ 10.2 UNITS/KG/HR 9.996 mls/hr IV .Q24H [facility] Rx#: [id number] Output: Urine 1600 410 Other: Voiding Method Indwelling Catheter Indwelling Catheter # Bowel Movements 1 - Exam Patient is encephalopathic, keeps his eyes closed. Pupils are round and reacting. Face is symmetric. He does open his eyes to calling his name loudly, but does not track, does not follow commands. Tone is equal in the arms. Patient does move his arms, and moans on painful stimuli. The responses equally in all 4 extremities. Patient did not cooperate for cerebellar functions, or gait. - Labs CBC & Chem 7: 06/19/20 09:32 06/19/20 09:32 Labs: Abnormal Lab Results - Last 24 Hours (Table) 06/18/20 06/19/20 06/19/20 Range/Units 19:32 09:32 09:32 WBC 11.2 H (3.8-10.6) k/uL Neutrophils # (Manual) 9.80 H (1.3-7.7) k/uL Lymphocytes # (Manual) 0.45 L (1.0-4.8) k/uL Metamyelocytes # (Man) 0.11 H (0) k/uL Nucleated RBCs 1 H (0-0) /100 WBC APTT 55.9 H (22.0-30.0) sec Sodium 148 H (137-145) mmol/L Chloride 121 H (98-107) mmol/L Carbon Dioxide 17 L (22-30) mmol/L BUN 47 H (9-20) mg/dL Creatinine 1.79 H (0.66-1.25) mg/dL Glucose 178 H (74-99) mg/dL 06/19/20 Range/Units 09:32 WBC (3.8-10.6) k/uL Neutrophils # (Manual) (1.3-7.7) k/uL Lymphocytes # (Manual) (1.0-4.8) k/uL Metamyelocytes # (Man) (0) k/uL Nucleated RBCs (0-0) /100 WBC APTT 43.7 H (22.0-30.0) sec Sodium (137-145) mmol/L Chloride (98-107) mmol/L Carbon Dioxide (22-30) mmol/L BUN (9-20) mg/dL Creatinine (0.66-1.25) mg/dL Glucose (74-99) mg/dL Microbiology - Last 24 Hours (Table) 06/15/20 12:40 Blood Culture - Preliminary Blood No Growth after 72 hours 06/15/20 13:29 Blood Culture - Preliminary Blood No Growth after 72 hours Assessment and Plan Assessment: * Altered mental status, likely due to toxic metabolic encephalopathy. Patient has acute Covid 19 pneumonia. * Hypernatremia with sodium 148 today, hypokalemia (resolved), mild to moderate renal insufficiency * Atrial fibrillation with rapid ventricular rate. Limited examination is nonfocal. * Elevated cardiac enzymes, possible troponin leak per cardiology. * Hypertension * Dyslipidemia. Plan: * EEG was abnormal, due to background disorganization and slowing of mild to moderate degree. This is suggestive of generalized cerebral dysfunction, as can be seen with toxic metabolic encephalopathy or due to diffuse structural brain abnormality. No epileptiform activity was seen. * Carotid Doppler revealed 50-69% stenosis on the right. Also mild to moderately elevated left ECA velocity. Left vertebral artery not visualized. Right vertebral artery antegrade. * Patient has been started on heparin for atrial fibrillation. Current PTT 43.7. Limited examination is nonfocal. Consider starting oral anticoagulants, when able to take by mouth. At present patient to lethargic. Continue IV fluids, hydration. * Medical management as per IM.
[2020-06-19] MEDS: methylPREDNISolone SOD SUCCI 40 MG/ML 1 ML VIAL IV SCH (13:13)
[2020-06-19] MEDS: AZITHROMYCIN 500 MG in SODIUM CHLORIDE 0.9% 250 ML IVPB SCH (13:14)
--- NOTE | 2020-06-19 14:41 | P.PN ---
Subjective HISTORY OF PRESENTING ILLNESS This is a pleasant 79-year-old male past medical history significant for hypertension, dyslipidemia, frequent PVC's and recent COVID infection. He used to follow in the office with Dr. Sharpe. He has not followed since 2017. He is currently here being treated for COVID. We discussed the case with the nurse to prevent spread of infection. He presented to the hospital with altered mental status and decreased level of consciousness that is getting worse over the previous several days. He had been diagnosed with Covid recently. On arrival he was noted to be in atrial fibrillation with rapid ventricular rate. He was initiated on Cardizem infusion. Currently heart rates are in the 140s with blood pressure 25/86 and a temperature of 102.5F. Telemetry data reviewed, WBC 5.7, hemoglobin 13.9, platelets 204, d-dimer 2.23, sodium 144, potassium 3.3, creatinine 1.67, troponin 0.255. Most recent echocardiogram obtained in the office in 2015 reveals preserved LV systolic function with ejection fraction 65% with grade 1 diastolic dysfunction. 06/19/2020 Pt continues to be in atrial fibrillation with increased ventricular rates. He is still not taking PO. Maintained on cardizem infusion and IVP lopressor as needed with heparin gtt for thromboembolic protection. Blood pressure 170/90 heart rate 96 afebrile and maintaining oxygen saturation on nasal cannula. Currently the family is discussing hospice options with the son. PHYSICAL EXAMINATION CONSTITUTIONAL: No apparent distress. Full exam was deferred to do COVID 19 ASSESSMENT Covid 19 Paroxysmal atrial fibrillation, new onset with RVR Troponin leak secondary to infection Febrile illness Hypertension Dyslipidemia PLAN He is still not taking oral medications. Change lopressor to 5 mg IVP scheduled every 6 hours. Continue cardizem infusion and titrate up for heart rate along with IV lopresor as needed. Continue IV heparin for thromboembolic protection while he is not taking orals. Prognosis guarded. Nurse Practitioner note has been reviewed, I agree with a documented findings and plan of care. Patient was seen and examined. Objective - Vital Signs Vital signs: Vital Signs Temp 99.4 F 06/19/20 03:59 Pulse 96 06/19/20 04:13 Resp 40 H 06/19/20 03:59 BP 170/90 06/19/20 04:13 Pulse Ox 92 L 06/19/20 03:59 Intake & Output 06/18/20 06/19/2006/19/21 18:59 06:59 18:59 Intake Total 254.517 175.863 Output Total 1600 410 Balance -1345.483 -234.137 Weight 105.5 kg Intake: Intake, IV Titration 254.517 175.863 Amount Diltiazem 125 mg In 125 79 Sodium Chloride 0.9% 100 ml @ 10 MG/HR 10 mls/hr IV .[id number] [facility] Rx#: [id number] Heparin Sod,Pork in 0.45% 129.517 96.863 NaCl 25,000 unit In 0.45 % NaCl 1 250ml.bag @ 10.2 UNITS/KG/HR 9.996 mls/hr IV .Q24H [facility] Rx#: [id number] Output: Urine 1600 410 Other: Voiding Method Indwelling Catheter Indwelling Catheter # Bowel Movements 1 - Labs CBC & Chem 7: 06/19/20 09:32 06/19/20 09:32 Labs: Abnormal Lab Results - Last 24 Hours (Table) 06/18/20 06/19/20 06/19/20 Range/Units 19:32 09:32 09:32 WBC 11.2 H (3.8-10.6) k/uL Neutrophils # (Manual) 9.80 H (1.3-7.7) k/uL Lymphocytes # (Manual) 0.45 L (1.0-4.8) k/uL Metamyelocytes # (Man) 0.11 H (0) k/uL Nucleated RBCs 1 H (0-0) /100 WBC APTT 55.9 H (22.0-30.0) sec Sodium 148 H (137-145) mmol/L Chloride 121 H (98-107) mmol/L Carbon Dioxide 17 L (22-30) mmol/L BUN 47 H (9-20) mg/dL Creatinine 1.79 H (0.66-1.25) mg/dL Glucose 178 H (74-99) mg/dL 06/19/20 Range/Units 09:32 WBC (3.8-10.6) k/uL Neutrophils # (Manual) (1.3-7.7) k/uL Lymphocytes # (Manual) (1.0-4.8) k/uL Metamyelocytes # (Man) (0) k/uL Nucleated RBCs (0-0) /100 WBC APTT 43.7 H (22.0-30.0) sec Sodium (137-145) mmol/L Chloride (98-107) mmol/L Carbon Dioxide (22-30) mmol/L BUN (9-20) mg/dL Creatinine (0.66-1.25) mg/dL Glucose (74-99) mg/dL Microbiology - Last 24 Hours (Table) 06/15/20 12:40 Blood Culture - Preliminary Blood No Growth after 72 hours 06/15/20 13:29 Blood Culture - Preliminary Blood No Growth after 72 hours
[2020-06-19 15:12] VITALS: BP 174/81; PULSE 115; RESP 30; TEMP 101.2
[2020-06-20] MEDS ORDERED: AZITHROMYCIN 500 MG TAB PO SCH (12:00)
--- NOTE | 2020-06-20 15:24 | P.DS ---
Providers Date of admission: 06/15/20 15:11 Expected date of discharge: 06/19/20 Attending physician: Alfonso Funes Consults: 06/15/20 23:03 Consult Physician Routine Consulting Provider: Kiel Crook Consult Reason/Comments: AMS Do you want consulting provider notified?: Yes 06/16/20 10:15 Consult Physician Routine Consulting Provider: Sher Lucas Consult Reason/Comments: a fib RVR Do you want consulting provider notified?: Yes 06/17/20 12:21 Consult Physician Routine Consulting Provider: Jacky Davenport Consult Reason/Comments: pneumonia Do you want consulting provider notified?: Yes Primary care physician: Stan Arias Hospital Course: HPI - Mr. Root is an 79-year-old patientNaq who follows with at the [facility]. Chronic stable medical conditions include kidney stones GERD, mitral regurgitation, peripheral neuropathy, spinal stenosis, hard of hearing, vitamin D deficiency, coronary artery disease, hyperlipidemia, major depression, tricuspid regurgitation, atrial fibrillation, osteoarthritis. Delivery week ago patient had been apparently getting about was able to converse. Staff indicated of the EMS personnel that the patient had declined from being oriented walking around conversing when unresponsive state. On the last 2 days oral intake had practically ceased. Patient's blood pressure the morning was 200/120. He did receive metoprolol and amlodipine. Telemetry didn't show atrial fibrillation.Patient is lethargic. Opens his eyes. Not really able to give any history. Patient also positive for COVID 19 apparently on May 31or . Hospital course - patient continued to be lethargic and encephalopathic. Showed very slight response to the treatment. He was on ceftriaxone and Zithromax. On IV Cardizem drip, IV heparin for his atrial fibrillation. He was on Solu-Medrol for Covid pneumonia. Over the course of time patient is not showing improvement and his CODE STATUS was changed to no code. I saw the patient on 06/19/2020, covering for Dr. phillips. As per the nursing staff report patient's condition deteriorated over night, and he became tachycardic and tachypneic. So his son Mr. Duron was contacted by me at [phone]. I spoke with him in detail about his father's condition. He said he is in touch with his other siblings and everyone is on the same patient and note that the patient's condition has been deteriorating since admission. Discussed the option of hospice care and he is agreeable to it. So the patient was made hospice. DISCHARGE DIAGNOSIS Encephalopathy from underlying pneumonia -Right lower lobe pneumonia. Suspect gram-negative organism. -Severe Sepsis from pneumonia, POA -Persistent atrial fibrillation. -Chronic congestive heart failure EF not known -Essential hypertension -Hyperlipidemia, -Cognitive impairment -Coronary artery disease with prior history of MS -COVID 19 pneumonitis. -Acute kidney injury likely prerenal. . -Acute metabolic/toxic encephalopathy and delirium from sepsis -Hypernatremia, worsening from free water deficit. IV fluids -Metabolic acidosis from renal failure -DO NOT RESUSCITATE Discharge disposition: Patient is discharged to hospice care. More than 35 minutes spent towards the discharge of the patient Patient Condition at Discharge: Serious Plan - Discharge Summary Discharge Rx Participant: No New Discharge Prescriptions: Discontinued Nitroglycerin Sl Tabs [Nitrostat] 0.4 mg SL Q5M PRN PRN Reason: Chest Pain Memantine [Namenda] 10 mg PO BID Furosemide [Lasix] 40 mg PO DAILY@0600 DULoxetine HCL [Cymbalta] 30 mg PO HS Aspirin EC [Ecotrin Low Dose] 162 mg PO DAILY Allopurinol [Zyloprim] 100 mg PO DAILY Methadone [Dolophine] 5 - 10 mg PO Q8H PRN PRN Reason: Pain Metoprolol Succinate (ER) [Toprol Xl] 25 mg PO DAILY Atorvastatin Calcium [Lipitor] 10 mg PO HS amLODIPine [Norvasc] 2.5 mg PO DAILY Follow up Appointment(s)/Referral(s): Stan Arias MD [Primary Care Provider] - 1-2 days Discharge Disposition: DISCH TO HOSPICE MED FACILTY
== END 2020-06-19 16:19 | disposition hospice, inpatient (51) | DRG 871 ==
LOC: EC 11:39 → 3SCARD 15:11
PROVIDERS: ADMIT Hospitalist; ATTEND Hospitalist
DX: A41.50 Gram-negative sepsis, unspecified (principal); U07.1 COVID-19; J96.01 Acute respiratory failure with hypoxia; J12.82 Pneumonia due to coronavirus disease 2019; I21.4 Non-ST elevation (NSTEMI) myocardial infarction; G92 Toxic encephalopathy; J15.6 Pneumonia due to other Gram-negative bacteria; N17.9 Acute kidney failure, unspecified; E87.2 Acidosis; F05 Delirium due to known physiological condition; I48.19 Other persistent atrial fibrillation; E87.0 Hyperosmolality and hypernatremia; R65.20 Severe sepsis without septic shock; E86.0 Dehydration; I11.0 Hypertensive heart disease with heart failure; I50.9 Heart failure, unspecified; E66.01 Morbid (severe) obesity due to excess calories; Z66 Do not resuscitate; Z51.5 Encounter for palliative care; E87.6 Hypokalemia; I08.1 Rheumatic disorders of both mitral and tricuspid valves; K21.9 Gastro-esophageal reflux disease without esophagitis; F32.9 Major depressive disorder, single episode, unspecified; E78.5 Hyperlipidemia, unspecified; G62.9 Polyneuropathy, unspecified; I25.10 Atherosclerotic heart disease of native coronary artery without angina pectoris; I49.3 Ventricular premature depolarization; R32 Unspecified urinary incontinence; I25.2 Old myocardial infarction; E55.9 Vitamin D deficiency, unspecified; Z68.31 Body mass index [BMI] 31.0-31.9, adult; R41.89 Other symptoms and signs involving cognitive functions and awareness; H91.90 Unspecified hearing loss, unspecified ear; M19.90 Unspecified osteoarthritis, unspecified site; M48.00 Spinal stenosis, site unspecified; Z79.82 Long term (current) use of aspirin; Z79.899 Other long term (current) drug therapy; Z91.81 History of falling; Z87.891 Personal history of nicotine dependence; Z87.442 Personal history of urinary calculi; Z88.8 Allergy status to other drugs, medicaments and biological substances
CPT/HCPCS: 36415; 70450; 71045; 71046; 80048; 80053; 80306; 81001; 82140; 82550; 83735; 84132; 84145; 84484; 85025; 85379; 85610; 85730; 86140; 87040; 93005; 93880; 95816; 96361; 96365; 96375; 96376; 99291

== ENCOUNTER 2020-06-19 15:53 | Inpatient (IN) | payer MEDICAID ==
[2020-06-19] MEDS ORDERED: GLYCOPYRROLATE 0.2 MG/ML 2 ML VIAL IVP PRN (16:06)
[2020-06-19] MEDS ORDERED: ONDANSETRON 4 MG/2 ML VIAL IVP PRN (16:06)
[2020-06-19] MEDS ORDERED: SCOPOLAMINE 1.5MG/72HR PATCH TRANSDERM SCH (16:15)
[2020-06-19] MEDS: MORPHINE SULFATE (100 MG/2 ML) 100 MG in SODIUM CHLORIDE 0.9% 100 ML IV SCH (17:41)
[2020-06-19] MEDS: LORazepam 2 MG/ML INJ IV PRN ×2 (17:53→20:58)
[2020-06-19] MEDS: MORPHINE SULFATE 2 MG/ML SYRINGE IV PRN ×5 (18:30→22:19)
[2020-06-19] MEDS: ATROPINE OPHTH SOLN 1% 5ML BTL SUBLINGUAL PRN (20:59)
[2020-06-20] MEDS ORDERED: LORazepam 2 MG/ML INJ ONE ×2 (01:50→05:15)
[2020-06-20] MEDS ORDERED: MORPHINE SULFATE 2 MG/ML SYRINGE ONE (03:06)
[2020-06-20] MEDS ORDERED: ATROPINE OPHTH SOLN 1% 5ML BTL ONE (04:20)
[2020-06-20] MEDS: LORazepam 2 MG/ML INJ IV PRN ×4 (09:42→20:49)
[2020-06-20] MEDS: MORPHINE SULFATE (100 MG/2 ML) 100 MG in SODIUM CHLORIDE 0.9% 100 ML IV SCH ×3 (09:43→23:04)
--- NOTE | 2020-06-20 12:55 | P.HPIM ---
History of Present Illness H&P Date: 06/20/20 This is an 79-year-old male who was recently admitted for increased weakness with an inability to walk or converse and was in an unresponsive state and is being closely monitored. Not been eating and has been clinically deteriorating. Patient has a past medical history of kidney stones, GERD, mitral regurgitation, peripheral neuropathy, spinal stenosis, hard of hearing, vitamin D deficiency, coronary artery disease, hyperlipidemia, major depression, tricuspid regurgitation, atrial fibrillation, and osteoarthritis and currently resides at an [facility] and follows with Dr. Dr. Arias in the outpatient setting. Patient was also recently found to be covered 19 positive in the month of May. Patient has clinically shown no improvement in his deteriorating and has signed on to hospice and will continue with inpatient comfort measures only. Review of Systems ROS unobtainable: due to mental status (Unable to obtain as patient is lethargic and unresponsive) Constitutional: Reports as per HPI Past Medical History Past Medical History: Atrial Fibrillation, Heart Failure, Hyperlipidemia, Hypertension, Myocardial Infarction (IN) Last Myocardial Infarction Date:: unknown History of Any Multi-Drug Resistant Organisms: None Reported Past Surgical History: Unable to Obtain Additional Past Surgical History / Comment(s): Back surgery (uses walker at home) Past Anesthesia/Blood Transfusion Reactions: No Reported Reaction Past Psychological History: No Psychological Hx Reported Smoking Status: Former smoker, Unknown if ever smoked Past Alcohol Use History: Unable to Obtain Past Drug Use History: Unable to Obtain Medications and Allergies Allergies Allergy/AdvReac Type Severity Reaction Status Date / Time GAIL Inhibitors Allergy Unknown Verified 06/19/20 17:05 mallampati Allergy Unknown Uncoded 06/15/20 12:09 Physical Exam Vitals: Vital Signs Pulse Resp 06/20/20 11:58 114 H 32 H 06/20/20 08:00 134 H 34 H 06/20/20 06:48 118 H 28 H 06/20/20 05:20 36 H 06/20/20 04:25 28 H 06/20/20 04:00 28 H 06/20/20 03:15 40 H 06/20/20 02:30 32 H 06/20/20 02:00 36 H 06/20/20 00:50 40 H 06/19/20 22:17 40 H 06/19/20 21:41 111 H 28 H 06/19/20 21:23 40 H 06/19/20 21:20 38 H 06/19/20 20:50 38 H 06/19/20 20:17 40 H Intake and Output 06/19/20 06/20/20 06/20/20 22:59 06:59 14:59 Intake Total 14.739 87.023 Output Total 400 175 Balance 14.739 -400 -87.977 Intake: Intake, IV Titration 14.9 87.023 Amount Morphine Sulfate (100 mg/ 14.73 87.023 2 ml) 100 mg In Sodium Chloride 0.9% 100 ml @ 1 MG/HR 1.02 mls/hr IV . Q24H [facility] Rx#:[id number] Output: Urine 400 175 Other: Voiding Method Indwelling Catheter Indwelling Catheter Indwelling Catheter Weight 105.5 kg 106.5 kg VITAL SIGNS: Heart rate 114, respirations 32 GENERAL: BMI 29.3, laying in bed, lethargic but arousable. EYES: Pupils equal. Conjunctiva palel. HEENT: External appearance of nose and ears normal, oral cavity dry mucous membranes. NECK: JVD not raised; masses not palpable. HEART: First and second heart sounds are normal; no edema. LUNGS: Increased respiratory rate, gargling noises on exam, GERD rhonchi throughout ABDOMEN: Soft, nontender, liver spleen not palpable, no masses palpable. PSYCH: Lethargic, unresponsive NEUROLOGICAL: Unable to fully assess as patient is unresponsive LYMPHATICS: No lymph nodes palpable in the axilla and neck Assessment and Plan Assessment: Decreased sensorium with possible metabolic encephalopathy from underlying pneumonia and possibly secondary to Covid 19 Severe dehydration Poor oral intake Right lower lobe pneumonia with suspected gram-negative organism [employer] atrial fibrillation Chronic congestive heart failure with EF unknown essential hypertension Hyperlipidemia Cognitive impairment Coronary artery disease with prior history of myocardial infarction Covid 19 pneumonitis Acute kidney injury likely prerenal No code Plan: Patient has signed on with [facility] and is inpatient hospice with comfort care measures only. We'll continue to monitor closely and make further recommendations based on the clinical course the patient. Prognosis remains extremely poor and guarded.
[2020-06-20] MEDS: ATROPINE OPHTH SOLN 1% 5ML BTL SUBLINGUAL PRN ×2 (13:33→19:52)
[2020-06-20] MEDS: ACETAMINOPHEN SUPPOSITORY 650 MG SUPP RECTAL PRN ×2 (15:27→20:44)
[2020-06-20 19:50] VITALS: TEMP 102.1
[2020-06-21 00:55] VITALS: PULSE 120; RESP 24
--- NOTE | 2020-07-08 16:52 | P.DS ---
Providers Date of admission: 06/19/20 16:29 Expected date of discharge: 06/21/20 Attending physician: Alfonso Funes Primary care physician: Stan Arias Hospital Course: This is an 79-year-old male who was recently admitted for increased weakness with an inability to walk or converse and was in an unresponsive state and is being closely monitored. Not been eating and has been clinically deteriorating. Patient has a past medical history of kidney stones, GERD, mitral regurgitation, peripheral neuropathy, spinal stenosis, hard of hearing, vitamin D deficiency, coronary artery disease, hyperlipidemia, major depression, tricuspid regurgitation, atrial fibrillation, and osteoarthritis and currently resides at an [facility] and follows with Dr. Dr. Arias in the outpatient setting. Patient was also recently found to be covered 19 positive in the month of May. Patient has clinically shown no improvement in his deteriorating and has signed on to hospice. He was continued with inpatient comfort measures only. He in the early hours of 06/21/2020. RN tried to notify his son. 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
== END 2020-06-21 00:08 | disposition expired | DRG 951 ==
LOC: 3SCARD 16:29
PROVIDERS: ADMIT Hospitalist; ATTEND Hospitalist
DX: Z51.5 Encounter for palliative care (principal); U07.1 COVID-19; J12.82 Pneumonia due to coronavirus disease 2019; G93.41 Metabolic encephalopathy; J15.6 Pneumonia due to other Gram-negative bacteria; N17.9 Acute kidney failure, unspecified; K21.9 Gastro-esophageal reflux disease without esophagitis; I25.10 Atherosclerotic heart disease of native coronary artery without angina pectoris; I48.91 Unspecified atrial fibrillation; E78.5 Hyperlipidemia, unspecified; I25.2 Old myocardial infarction; Z87.891 Personal history of nicotine dependence; I50.9 Heart failure, unspecified; E86.0 Dehydration; H91.90 Unspecified hearing loss, unspecified ear; R41.89 Other symptoms and signs involving cognitive functions and awareness; I11.0 Hypertensive heart disease with heart failure; Z87.442 Personal history of urinary calculi; I08.1 Rheumatic disorders of both mitral and tricuspid valves; G62.9 Polyneuropathy, unspecified